=== PATIENT | female | born 1970 | race Caucasian/White ===

== ENCOUNTER → 2019-06-29 08:07 | Outpatient (CLI) | payer BC, SELFPAY ==
[2019-06-29 12:44] LABS: Hemoglobin A1c 4.9 % (4.2-6.3)
[2019-06-29 13:00] LABS: Free T3 2.2 pg/mL (2.18-3.98); T4 Free Direct 1.07 ng/dL (0.76-1.46); Thyroid Stim Hormone (TSH) 2.37 uIU/mL (0.358-3.74)
== END ==
PROVIDERS: Family Provider Family Medicine; PCP Family Medicine; Visit Provider Family Medicine
DX: E03.9 Hypothyroidism, unspecified (principal); Z83.3 Family history of diabetes mellitus
CPT/HCPCS: 36415; 83036; 84439; 84443; 84481

== ENCOUNTER 2021-01-19 10:36 | Outpatient (RCR) | payer BC, SELFPAY ==
[2015-11-19 06:51] VITALS: BMI 31.2
== END 2021-03-14 23:59 ==
LOC: IMMUN 10:36
PROVIDERS: PCP Family Medicine; Referring Provider Family Medicine; Visit Provider Family Medicine
DX: Z23 Encounter for immunization (principal)
CPT/HCPCS: 0001A; 0002A; 91300

== ENCOUNTER 2023-12-12 06:50 | Day surgery (SDC) | payer BC, SELFPAY ==
--- OUTSIDE RECORDS SUMMARY | 2023-12-12 06:55 | XMS RPT_ITS | CCD ---
Author Name Unknown Address [address] [place] [address] Organization [facility] Care Team Providers Care Collection Officer Name Role Phone Mariaelena Sosa Primary Care Provider [phone] MARIAELENA SOSA Primary Care Unavailable ROCCO PEPE Attending Unavailable MARIAELENA SOSA Primary Care Unavailable Allergies Allergy Classification Reported Allergen(s) Allergy Type Date of Onset Reaction(s) Facility (8 sources) ENVIRONMENTAL [Other] Propensity to adverse reactions 8 [facility] Work Phone: (1 source) Seasonal allergy; Translations: [SEASONAL ALLERGIES] Propensity to adverse reactions (disorder) 4 [facility] Repository (1 source) OTHER; Translations: [OTHER] Propensity to adverse reactions (disorder) 8 [facility] Repository Medications Current Medications Medication Drug Class(es) Dates Sig (Normalized) Sig (Original) amoxicillin 500 mg oral capsule (2 sources) Penicillin-class Antibacterial Start: 12-19-2022 End: 12-29-2022 take 1 capsule by mouth twice daily amoxicillin (AMOXIL) 500 mg capsule Take 1 capsule by mouth twice daily for 10 days. 20 capsule 0 12/19/2022 12/29/2022 Active Completed/Discontinued Medications Medication Drug Class(es) Dates Sig (Normalized) Sig (Original) clobetasol propionate 0.0005 mg/mg topical ointment (4 sources) Corticosteroid Start: 04-03-2022 clobetasol (TEMOVATE) 0.05 % ointment Apply thin layer to affected area BID x 4wks, then daily for 4 wks, then every other day for 4 weeks then PRN for symptoms 60 g 3 04/03/2022 Active Problems Active Problems Problem Classification Problem Date Documented Date Episodic/Chronic Administrative/social admission (1 source) Worried well; Translations: [Person with feared health complaint in whom no diagnosis is made] Episodic Immunizations and screening for infectious disease (1 source) Encounter for screening for human papillomavirus (HPV); Translations: [Screening for human papillomavirus (HPV)] Onset: 10-18-2023 Episodic Menopausal disorders (1 source) Atrophy of vagina; 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 Other female genital disorders (1 source) Burning sensation of vulva; Translations: [Other specified conditions associated with female genital organs and menstrual cycle] Episodic Other inflammatory condition of skin (2 sources) Pruritus of vulva; Translations: [Pruritus vulvae] Episodic Other inflammatory condition of skin (1 source) Lichenification of skin; Translations: [Lichen simplex chronicus] Episodic Other nutritional; endocrine; and metabolic disorders (1 source) Obesity; Translations: [Other obesity due to excess calories] Chronic Other screening for suspected conditions (not mental disorders or infectious disease) (3 sources) Patient encounter status; Translations: [Encounter for screening mammogram for malignant neoplasm of breast] Onset: 10-18-2023 Episodic Other upper respiratory infections (5 sources) Sore throat symptom; Translations: [Acute pharyngitis, unspecified] Episodic Otitis media and related conditions (1 source) Dysfunction of bilateral eustachian tubes; Translations: [Other specified disorders of Eustachian tube, bilateral] Episodic Unclassified (1 source) Dense breast tissue; Translations: [Dense breast tissue] Onset: 10-18-2023 Past or Other Problems Problem Classification Problem Date Documented Da te Episodic/Chronic Inflammatory diseases of female pelvic organs (9 sources) Vulvovaginitis; Translations: [Acute vaginitis] Onset: 06-05-2013 06-05-2013 Episodic Results Test Name Value Interpretation Reference Range Facil ity Vital Signs Date Time Vital Sign Value Performing Clinician Rasheed jones 12-19-2022 16:38-0400 Body temperature 99 [degF] Melvin Gardner APRN.CNP Work Phone: [facility] 12-19-2022 16:38-0400 Body weight 104.33 kg Melvin Gardner APRN.CNP Work Phone: [facility] 12-19-2022 16:38-0400 Diastolic blood pressure 72 mm[Hg] Melvin Callow BROKE BEATER MACHINE OPERATOR.AZURE DEVELOPER Work Phone: [facility] 12-19-2022 16:38-0400 Heart rate 90 /min Melvin Callow BROKE BEATER MACHINE OPERATOR.AZURE DEVELOPER Work Phone: [facility] 12-19-2022 16:38-0400 Respiratory rate 16 /min Melvin Callow BROKE BEATER MACHINE OPERATOR.AZURE DEVELOPER Work Phone: [facility] 12-19-2022 16:38-0400 SaO2% (BldA) [Mass fraction] 99 % Melvin Callow BROKE BEATER MACHINE OPERATOR.AZURE DEVELOPER Work Phone: [facility] 12-19-2022 16:38-0400 Systolic blood pressure 122 mm[Hg] Melvin Callow BROKE BEATER MACHINE OPERATOR.AZURE DEVELOPER Work Phone: [facility] 06-25-2022 13:38-0400 Body weight 100.61 kg Rocco Pepe BROKE BEATER MACHINE OPERATOR.CNM Work Phone: [facility] 06-25-2022 13:38-0400 Diastolic blood pressure 70 mm[Hg] Rocco Eppe BROKE BEATER MACHINE OPERATOR.CNM Work Phone: [facility] 06-25-2022 13:38-0400 Systolic blood pressure 120 mm[Hg] Rocco Pepe BROKE BEATER MACHINE OPERATOR.CNM Work Phone: [facility] 04-03-2022 11:46-0400 Body weight 100.25 kg Rocco Pepe BROKE BEATER MACHINE OPERATOR.CNM Work Phone: [facility] 04-03-2022 11:46-0400 Diastolic blood pressure 70 mm[Hg] Rocco Pepe BROKE BEATER MACHINE OPERATOR.CNM Work Phone: [facility] 04-03-2022 11:46-0400 Systolic blood pressure 110 mm[Hg] Rocco Pepe BROKE BEATER MACHINE OPERATOR.CNM Work Phone: [facility] 03-27-2022 10:48-0400 Body height 166.4 cm Rocco Pepe BROKE BEATER MACHINE OPERATOR.CNM Work Phone: [facility] 03-27-2022 10:48-0400 Body weight 98.88 kg Rocco Pepe BROKE BEATER MACHINE OPERATOR.CNM Work Phone: [facility] 03-27-2022 10:48-0400 Diastolic blood pressure 68 mm[Hg] Rocco Pepe BROKE BEATER MACHINE OPERATOR.CNM Work Phone: [facility] 03-27-2022 10:48-0400 Systolic blood pressure 118 mm[Hg] Rocco Pepe BROKE BEATER MACHINE OPERATOR.CNM Work Phone: [facility] 01-25-2022 08:44-0400 Body temperature 97.81 [degF] Mick Alex BROKE BEATER MACHINE OPERATOR.AZURE DEVELOPER Work Phone: [facility] 01-25-2022 08:44-0400 Body weight 100.88 kg Mick Johnson BROKE BEATER MACHINE OPERATOR.AZURE DEVELOPER Work Phone: [facility] 01-25-2022 08:44-0400 Diastolic blood pressure 70 mm[Hg] Mick Alex BROKE BEATER MACHINE OPERATOR.AZURE DEVELOPER Work Phone: [facility] 01-25-2022 08:44-0400 Heart rate 82 /min Mick Alex BROKE BEATER MACHINE OPERATOR.AZURE DEVELOPER Work Phone: [facility] 01-25-2022 08:44-0400 Respiratory rate 16 /min Mick Alex BROKE BEATER MACHINE OPERATOR.AZURE DEVELOPER Work Phone: [facility] 01-25-2022 08:44-0400 SaO2% (BldA) [Mass fraction] 98 % Mick Alex BROKE BEATER MACHINE OPERATOR.AZURE DEVELOPER Work Phone: [facility] 01-25-2022 08:44-0400 Systolic blood pressure 118 mm[Hg] Mick Alex BROKE BEATER MACHINE OPERATOR.AZURE DEVELOPER Work Phone: [facility] 12-30-2021 11:31-0400 Body temperature 97.39 [degF] Mick Alex BROKE BEATER MACHINE OPERATOR.AZURE DEVELOPER Work Phone: [facility] 12-30-2021 11:31-0400 Body weight 99.97 kg Imck Alex BROKE BEATER MACHINE OPERATOR.AZURE DEVELOPER Work Phone: [facility] 12-30-2021 11:31-0400 Diastolic blood pressure 70 mm[Hg] Mick Johnson APRN.KOURTNEY Work Phone: [facility] 12-30-2021 11:31-0400 Heart rate 88 /min iMck Johnson APRN.KOURTNEY Work Phone: [facility] 12-30-2021 11:31-0400 Respiratory rate 18 /min Mick Johnson APRN.AZURE DEVELOPER Work Phone: [facility] 12-30-2021 11:31-0400 SaO2% (BldA) [Mass fraction] 98 % Mick Johnson APRN.CNP Work Phone: [facility] 12-30-2021 11:31-0400 Systolic blood pressure 110 mm[Hg] Mick Johnson APRN.KOURTNEY Work Phone: [facility] Encounters Encounter Date Encounter Type Care Provider Facility Start: 10-18-2023 End: 10-19-2023 ambulatory MARIAELENA SOSA Facility:[facility] Start: 10-18-2023 Encounter for gynecological examination (general) (routine) with abnormal findings ROCCOCHANO PEPE [facility] Start: 12-19-2022 End: 12-19-2022 ambulatory MARIAELENA Mallorie SOSA Facility:[facility] Start: 12-19-2022 End: 12-19-2022 Patient encounter procedure Melvin Gardner APRN.CNP Work Phone: [facility] Procedures Date Procedure Procedure Detail Performing Clinician Start: 12-19-2022 STREP A MOLECULAR (POC) Josephine Nunez PA-C Work Phone: Start: 02-12-2022 End: 02-12-2022 Screening mammography bi 2-view breast inc cad [facility] Provider Start: 01-25-2022 STREP A MOLECULAR (POC) [facility] Provider Start: 12-30-2021 STREP A MOLECULAR (POC) [facility] Provider Start: 12-15-2019 Mammography Mick nichols APRN.CNP Work Phone: Plan of Treatment Date Care Activity Detail Author Start: 12-14-2024 HPV TESTING HPV TESTING [facility] Start: 12-14-2024 PAP TESTING PAP TESTING [facility] Start: 07-16-2023 Urine microalbumin profile DTAP,TDAP,TD (2 - Td or Tdap) [facility] Start: 02-12-2023 Mammography MAMMOGRAM [facility] Start: 10-07-2022 DEPRESSION ASSESSMENT DEPRESSION ASSESSMENT [facility] Start: 06-07-2022 Influenza vaccination [facility] Start: 2022 SHINGRIX VACCINE (1 of 2) SHINGRIX VACCINE (1 of 2) [facility] Start: 07-12-2021 COVID-19 VACCINE (3 - Booster for Pfizer series) COVID-19 VACCINE (3 - Booster for Pfizer series) [facility] Start: 06-07-2021 Influenza vaccination INFLUENZA (#1) [facility] Start: 04-06-2021 COVID-19 VACCINE (3 - Booster for Pfizer series) COVID-19 VACCINE (3 - Booster for Pfizer series) [facility] Start: 12-14-2020 Mammography MAMMOGRAM [facility] Start: 10-04-2019 LIPID SCREEN LIPID SCREEN [facility] Start: 2017 COLOGUARD (FIT-DNA) COLOGUARD (FIT-DNA) [facility] Start: 2017 Colonoscopy COLONOSCOPY [facility] Start: 2017 COLORECTAL CANCER SCREENING COLORECTAL CANCER SCREENING [facility] Start: [address] COLONOGRAPHY [facility] Start: 2017 DIABETES SCREEN DIABETES SCREEN [facility] Start: 2017 FECAL OCCULT BLOOD FECAL OCCULT BLOOD [facility] Start: 2017 SIGMOIDOSCOPY SIGMOIDOSCOPY [facility] Start: 1990 HEPATITIS C SCREENING HEPATITIS C SCREENING [facility] Start: 1990 HIV SCREENING HIV SCREENING [facility] Start: 1984 Adult depression screening assessment DEPRESSION SCREENING [facility] Start: 1972 HEPATITIS B (1 of 3 - 3-dose series) HEPATITIS B (1 of 3 - 3-dose series) [facility] ALERE STREP A TEST (AG) ALERE ST REP A TEST (AG) Lab Routine Sore throat Ordered: 12/30/2021 [facility] Work Phone: Immunizations Immunization Date Immunization Notes Care Provider Fa cility 08-19-2020 influenza, injectabl e, quadrivalent, contains preservative Mick King ANALY.KOURTNEY Work Phone: [facility] Work Phone: 07-16-2013 tetanus toxoid, redu bassam diphtheria toxoid, and acellular pertussis vaccine, adsorbed Mick King ANALY.AZURE DEVELOPER Work Phone: [facility] Work Phone: Payers Date Payer Category Payer Unknown [employer] PPO OOS [id number] 2010-Present [phone] [address] [place] [address] PPO [id number] 2010 Unknown [employer] PPO OOS [id number] 2010-Present [phone] [address] [place] [id number] PPO [id number] 2010 Unknown [id number] Social History Date Type Detail Facility Start: 06-25-2022 Tobacco smoking stat [facility] Never smoked tobacco [facility] Start: 12-30-2021 End: 12-19-2022 Alcohol intake Current drinker of alcohol (finding) [facility] Start: 12-15-2019 History SDOH Alcohol Comment Occasionally [facility] Start: 1970 Sex Assigned At Not on file [facility] Start: 12-20-2021 End: 03-27-2022 Exposure to SARS-CoV-2 (event) Not sure [facility] Start: 06-25-2022 Tobacco use and exposure Smokeless tobacco non-user [facility] Clinical Notes 08-04-2012 to 10-18-2023 Melvin Gardner APRN.AZURE DEVELOPER - 12/19/2022 8:15 PM EDTPatient Nasim Pepe APRN.CNM - 06/25/2022 1:35 PM EDTTelephone Encounter - Blanche Albarado RN - 04/23/2022 3:12 PM EDT Note Date & Type Note Facility 10-18-2023 Note HNO ID: [id number] Author: ROCCO PEPE APRN.CNM Service: ? Author Type: Damper Worker Type: Progress Notes Filed: 10/22/2023 15:22 Note Text: Melvin is a 53 year old who presents for an annual gynecologic exam with complaints of vaginal pain, itching, discharge and menses irregularity. Menses: Every 30 days however sometimes is spotting the first day period is due, then next day menses begins. This is new for pt Last Pap: 12/22/2019 normal HPV: 12/19/2019 negative History of abnormal pap: No Last mammogram: 2021 normal History of abnormal mammogram: No Sexually active: Yes, uses condoms Pain with intercourse: Yes. Avoids intercourse when is experiencing vaginal discomfort Exercise:7 times a week for 40 minutes. Type: walking Diet: regular/ lower carb OB History T2 L2 SAB2 IAB0 Ectopic0 Multiple0 Live Births2 Comment: Adopted twins from [place] PAST MEDICAL HISTORY Diagnosis Date Miscarriage 2 Miscarriages PAST SURGICAL HISTORY Procedure Laterality Date PAST SURGICAL HISTORY OF WISDOM TEETH TONSILLECTOMY PRIMARY/SECONDARY FAMILY HISTORY Problem Relation Age of Onset Psychiatry Mother ADD/?Bipolar Heart Mother Diabetes Mother Pre Diabetic Diabetes Father Heart Father other (CORONARY ARTRY DISEASE) Father WITH STENT PLACEMENT other (Parkinson's) Father No Known Problems Sister Hypertension Brother Psychiatry Brother ADD Alzheimer's Disease Maternal Grandmother Osteoporosis Maternal Grandmother No Known Problems Daughter No Known Problems Daughter other (Other) Son Adopted other (Other) Son Adopted Cancer Maternal Uncle STOMACH CANCER Diabetes Maternal Uncle SOCIAL HISTORY Social History Tobacco Use Smoking status: Never Smokeless tobacco: Never Vaping Use Vaping Use: Never used Substance Use Topics Alcohol use: Yes Comment: Occasionally Drug use: No REVIEW OF SYSTEMS Abdomen: No abdominal pain, nausea, vomiting, diarrhea, or constipation. No bloating, early satiety, indigestion, or increased flatulence. Bladder: No dysuria, gross hematuria, urinary frequency, urinary urgency. Has some stress incontinence Breast: No breast lumps, nipple d/c, overlying skin changes, redness or skin retraction and Breast lump(s) noted Allergies and current medication updated:Yes EXAM: BP 110/66 Wt 227 lb (103.0kg) LMP 06/25/2022 GENERAL: pleasant, female in no apparent distress HEENT: Normocephalic, atraumatic, mucus membranes moist, and no lesions NECK: Supple, full range of motion, no adenopathy, and thyroid normal DERMATOLOGY: Normal, without lesions, non-icteric, non-hirsute, and warm BREAST: soft, non-tender, symmetric, no dominant mass, normal nipple-areolar complex, no lymphadenopathy, and no nipple discharge CHEST: Clear to auscultation, Normal inspiratory effort, Regular rate and rhythm, and No murmurs, clicks, rubs or gallops ABDOMEN: soft, non-tender, and no masses PELVIC: external genitalia normal, normal Bartholin's glands, urethra, Westgate's glands, no vulvar lesions, no cervical lesions, good vaginal support, physiologic discharge present white/yellow, thick, normal appearing perineal body and perianal region, well estrogenized BIMANUAL: uterus normal size, shape and consistency, no adnexal masses, non-tender, and no cervical motion tenderness RECTOVAGINAL: deferred. NEURO: alert and oriented x3,exam grossly non-focal EXTREMITIES: normal ASSESSMENT: 1. Encounter for gynecological examination with abnormal finding - ICD9: V72.31, ICD10: Z01.411 (primary diagnosis) - Completed pelvic and breast exam - Encouraged monthly BSE - Follow up for annual exam in one year. - PAP TEST - BACTERIAL VAGINOSIS NAAT - ELEANOR/TRICHOMONAS NAAT 2. Encounter for screening mammogram for breast cancer - ICD9: V76.12, ICD10: Z12.31 - Completed pelvic and breast exam - Encouraged monthly BSE - Follow up for annual exam in one year. - RUSSEL SCREENING W YOMAIRA 3. Dense breast tissue - ICD9: 793.82, ICD10: R92.30 - RUSSEL SCREENING W YOMAIRA 4. Screening for cervical cancer - ICD9: V76.2, ICD10: Z12.4 Is scheduling with her PCP 5. Screening for human papillomavirus (HPV) - ICD9: V73.81, ICD10: Z11.51 - PAP TEST Plan: 1) Health maintenance: Pap done with HPV. Nutrition, exercise and routine health maintenance exams reviewed. Planning to have colonoscopy before leaving for [facility] with family this summer 2) Education regarding perimenopausal symptoms reviewed with patient. 3) Discussed continued use of condoms until menopause. 4) Clobetasol ointment reordered for vaginal comfort, tapering dose, then prn. 4) Return to office for annual visit in one year and as needed. Plans to travel to [facility] for health care needs while in [facility], as needed. Onel Agrawal [facility] TEACHING AIR TRAFFIC SYSTEMS TECHNICIAN NOTE OF PERSONAL INVOLVEMENT IN CARE: I have interviewed the patient and updated the midwifery s (more content not included)... [facility] 12-19-2022 Note HNO ID: [id number] Author: Melvin Gardner APRN.AZURE DEVELOPER Service: ? Author Type: Nurse Practitioner Type: Progress Notes Filed: 12/19/2022 8:18 PM Note Text: Subjective HPI Melvin Presents today with two day hx of sorethroat and several family members with strep at home. She is feeling feverish and just not herself today. She is eating and drinking well, no rash or other symptoms at this time. PAST MEDICAL HISTORY Diagnosis Date Miscarriage 2 Miscarriages PAST SURGICAL HISTORY Procedure Laterality Date PAST SURGICAL HISTORY OF WISDOM TEETH TONSILLECTOMY PRIMARY/SECONDARY ALLERGIES Environmental [Other] MEDICATIONS Estradiol (VAGIFEM) 10 mcg vaginal tablet Use 1 tablet vaginally once daily. For 2 weeks then twice a week clobetasol (TEMOVATE) 0.05 % ointment Apply thin layer to affected area BID x 4wks, then daily for 4 wks, then every other day for 4 weeks then PRN for symptoms Lactobacillus acidophilus (PROBIOTIC ORAL) Take by mouth. MULTIVITAMIN ORAL Take by mouth. amoxicillin (AMOXIL) 500 mg capsule Take 1 capsule by mouth twice daily for 10 days. fluticasone (FLONASE) 50 mcg/actuation nasal spray Use 2 Sprays in each nostril once daily. Rinse mouth after use. (Patient not taking: Reported on 06/25/2022) FAMILY HISTORY Problem Relation Age of Onset Psychiatry Mother ADD/?Bipolar Heart Mother Diabetes Mother Pre Diabetic Diabetes Father Heart Father other (CORONARY ARTRY DISEASE) Father WITH STENT PLACEMENT other (Parkinson's) Father No Known Problems Sister Hypertension Brother Psychiatry Brother ADD Alzheimer's Disease Maternal Grandmother Osteoporosis Maternal Grandmother No Known Problems Daughter No Known Problems Daughter other (Other) Son Adopted other (Other) Son Adopted Cancer Maternal Uncle STOMACH CANCER Diabetes Maternal Uncle Social History Tobacco Use Smoking status: Never Smokeless tobacco: Never Vaping Use Vaping Use: Never used Substance Use Topics Alcohol use: Yes Comment: Occasionally Drug use: No Review of Systems Constitutional: Positive for fever. HENT: Positive for sore throat. All other systems reviewed and are negative. Objective Physical Exam Vitals and nursing note reviewed. Constitutional: Appearance: Normal appearance. HENT: Head: Normocephalic and atraumatic. Right Ear: Tympanic membrane normal. Left Ear: Tympanic membrane normal. Nose: Nose normal. No congestion. Mouth/Throat: Mouth: Mucous membranes are dry. Pharynx: Posterior oropharyngeal erythema present. Eyes: Extraocular Movements: Extraocular movements intact. Pupils: Pupils are equal, round, and reactive to light. Cardiovascular: Rate and Rhythm: Normal rate and regular rhythm. Pulses: Normal pulses. Pulmonary: Effort: Pulmonary effort is normal. Breath sounds: Normal breath sounds. Abdominal: General: Abdomen is flat. Palpations: Abdomen is soft. Musculoskeletal: General: Normal range of motion. Cervical back: Normal range of motion. Neurological: Mental Status: She is alert. ASSESSMENT/PLAN: 1. Sore throat - ICD9: 462, ICD10: J02.9 (primary diagnosis) - Rapid Strep positive in the office today - STREP A MOLECULAR (POC) 2. Sorethroat - ICD9: 462, ICD10: J02.9 - Discussed supportive care treatment with fluids, rest and analgesia. Follow up in any concerns radha Gardner APRN.[facility] 12-19-2022 History of Presen t illness Narrative Subjective HPI Melvin Presents today with two day hx of sorethroat and several family members with strep at home. She is feeling feverish and just not herself today. She is eating and drinking well, no rash or other symptoms at this time. PAST MEDICAL HISTORY Diagnosis Date Miscarriage 2 Miscarriages PAST SURGICAL HISTORY Procedure Laterality Date PAST SURGICAL HISTORY OF WISDOM TEETH TONSILLECTOMY PRIMARY/SECONDARY <AGE 14 ALLERGIES Environmental [Other] MEDICATIONS Estradiol (VAGIFEM) 10 mcg vaginal tablet Use 1 tablet vaginally once daily. For 2 weeks then twice a week clobetasol (TEMOVATE) 0.05 % ointment Apply thin layer to affected area BID x 4wks, then daily for 4 wks, then every other day for 4 weeks then PRN for symptoms Lactobacillus acidophilus (PROBIOTIC ORAL) Take by mouth. MULTIVITAMIN ORAL Take by mouth. amoxicillin (AMOXIL) 500 mg capsule Take 1 capsule by mouth twice daily for 10 days. fluticasone (FLONASE) 50 mcg/actuation nasal spray Use 2 Sprays in each nostril once daily. Rinse mouth after use. (Patient not taking: Reported on 06/25/2022) FAMILY HISTORY Problem Relation Age of Onset Psychiatry Mother ADD/?Bipolar Heart Mother Diabetes Mother Pre Diabetic Diabetes Father Heart Father other (CORONARY ARTRY DISEASE) Father WITH STENT PLACEMENT other (Parkinson's) Father No Known Problems Sister Hypertension Brother Psychiatry Brother ADD Alzheimer's Disease Maternal Grandmother Osteoporosis Maternal Grandmother No Known Problems Daughter No Known Problems Daughter other (Other) Son Adopted other (Other) Son Adopted Cancer Maternal Uncle STOMACH CANCER Diabetes Maternal Uncle Social History Tobacco Use Smoking status: Never Smokeless tobacco: Never Vaping Use Vaping Use: Never used Substance Use Topics Alcohol use: Yes Comment: Occasionally Drug use: No Review of Systems Constitutional: Positive for fever. HENT: Positive for sore throat. All other systems reviewed and are negative. Objective Physical Exam Vitals and nursing note reviewed. Constitutional: Appearance: Normal appearance. HENT: Head: Normocephalic and atraumatic. Right Ear: Tympanic membrane normal. Left Ear: Tympanic membrane normal. Nose: Nose normal. No congestion. Mouth/Throat: Mouth: Mucous membranes are dry. Pharynx: Posterior oropharyngeal erythema present. Eyes: Extraocular Movements: Extraocular movements intact. Pupils: Pupils are equal, round, and reactive to light. Cardiovascular: Rate and Rhythm: Normal rate and regular rhythm. Pulses: Normal pulses. Pulmonary: Effort: Pulmonary effort is normal. Breath sounds: Normal breath sounds. Abdominal: General: Abdomen is flat. Palpations: Abdomen is soft. Musculoskeletal: General: Normal range of motion. Cervical back: Normal range of motion. Neurological: Mental Status: She is alert. ASSESSMENT/PLAN: 1. Sore throat - ICD9: 462, ICD10: J02.9 (primary diagnosis) - Rapid Strep positive in the office today - STREP A MOLECULAR (POC) 2. Sorethroat - ICD9: 462, ICD10: J02.9 - Discussed supportive care treatment with fluids, rest and analgesia. Follow up in any concerns radha Gardner APRN.CNP documented in this encounter [facility] 06-25-2022 Instructions Rocco Pepe APRN.CNM - 06/25/2022 2:02 PM EDT 1)Start vaginal tablet-Insert vaginal tablet into the vaginal opening nightly for two weeks and then, twice weekly. 2) May decrease steroid ointment to vulva to as needed. documented in this encounter [facility] 06-25-2022 History of Presen t illness Narrative Hand Candle Molder offered: Patient declines. Melvin Lees is a 52 year old female who presents for problem visit follow up. HPI: Clobetasol ointment has helped with discomfort and itching. Will still come every couple of days.Will feel raw and exposed . Instant relief. Will also get burning at times. After drinking orange juice had burning. So has noticed a correlation between with orange juice and pinapple Menses still every month, LMP 06/25/22. Using condoms for control Denies continued itch scratch cycle and tries to avoid touching. Discomfort during intercourse is better and nothing inside. Previous just with touching outside. . Denies any vaginal discharge or other concerns. OB History T2 L2 SAB2 IAB0 Ectopic0 Multiple0 Live Births2 Comment: Adopted twins from [place] [employer] Guest [employer] History LMP: 03/12/2022, Having periods Age at Menarche: Age at First : Age at Menopause: [employer] History Comments: Sexual Activity: Yes; Male; Nuvaring Contraception: Inserts PAST MEDICAL HISTORY Diagnosis Date Miscarriage 2 Miscarriages PAST SURGICAL HISTORY Procedure Laterality Date PAST SURGICAL HISTORY OF WISDOM TEETH TONSILLECTOMY PRIMARY/SECONDARY <AGE 12 FAMILY HISTORY Problem Relation Age of Onset Psychiatry Mother ADD/?Bipolar Heart Mother Diabetes Mother Pre Diabetic Diabetes Father Heart Father other (CORONARY ARTRY DISEASE) Father WITH STENT PLACEMENT other (Parkinson's) Father No Known Problems Sister Hypertension Brother Psychiatry Brother ADD Alzheimer's Disease Maternal Grandmother Osteoporosis Maternal Grandmother No Known Problems Daughter No Known Problems Daughter other (Other) Son Adopted other (Other) Son Adopted Cancer Maternal Uncle STOMACH CANCER Diabetes Maternal Uncle Social History Tobacco Use Smoking status: Never Smokeless tobacco: Never Vaping Use Vaping Use: Never used Substance Use Topics Alcohol use: Yes Comment: Occasionally Drug use: No Current Outpatient Medications Medication Sig clobetasol (TEMOVATE) 0.05 % ointment Apply thin layer to affected area BID x 4wks, then daily for 4 wks, then every other day for 4 weeks then PRN for symptoms fluticasone (FLONASE) 50 mcg/actuation nasal spray Use 2 Sprays in each nostril once daily. Rinse mouth after use. Lactobacillus acidophilus (PROBIOTIC ORAL) Take by mouth. MULTIVITAMIN ORAL Take by mouth. No current facility-administered medications for this visit. Allergies As of Date: 06/25/2022 Allergen Noted Reaction ENVIRONMENTAL [OTHER] 11/28/2007 Fully Assessed 04/03/2022 REVIEW OF SYSTEMS Abdomen: No bloating, early satiety, indigestion, or increased flatulence. No abdominal pain, nausea, vomiting, diarrhea, or constipation. Bladder: No dysuria, gross hematuria, urinary frequency, urinary urgency, or incontinence. Breast: No breast lumps, nipple d/c, overlying skin changes, redness or skin retraction. Expanded ROS: N/A Allergies and current medication updated:Yes EXAM: LMP 03/12/2022 BP 120/70 Wt 221 lb 12.8 oz (100.6 kg) LMP 06/25/2022 BMI 36.35 kg/m GENERAL: pleasant, female in no apparent distress HEENT: Normocephalic and atraumatic NECK: Supple and full range of motio DERMATOLOGY: Normal and without lesions CHEST: Normal inspiratory effort ABDOMEN: soft, non-tender, and no masses PELVIC: deferred BIMANUAL: deferred NEURO: alert and oriented x3,exam grossly non-focal EXTREMITIES: normal ASSESSMENT AND PLAN: 1. Vaginal atrophy - ICD9: 627.3, ICD10: N95.2 (primary diagnosis) - ESTRADIOL 10 MCG VAGINAL TABLET - Reviewed option for vaginal estrogen and possible vaginal atrophy as cause of symptoms. Declined exam today. Reviewed risks, benefits, and administration. Reviewed how to take medication. Follow units pin 4-6 weeks. Declines and will send message if no improvement. 2. Vulvar burning - ICD9: 625.9, ICD10: N94.89 Rocco Pepe APRN.CNM documented in this encounter [facility] 04-23-2022 Miscellaneous Notes Pt. notified. Voices understanding. Follow up appt. made with Rocco Pepe. Blanche Albarado RN Message left on identified voicemail for pt to return call. Please review below results and schedule appt/ close encounter when pt calls back. Blanche Albarado RN Saul Crawford, I just wanted to let you know your biopsy shows chronic inflammation, so it is not lichen sclerosis. The treatment is still the same though and recommend to continue the steroid ointment. I would like to see you in about 1-2 months if you don't mind to see if improvement or if we need to do something else. Please schedule an appointment with me at that time. Please let me know if you have any other questions or concerns. Take care, Rocco Pepe APRN.CNM See Implisit message re: vulvar bx. Message left for pt to contact the office for further instructions. Naila Soto LPN ----- Message from Rocco Pepe APRN.CNM sent at 04/20/2022 1:40 PM EDT ----- Patient did not view Implisit message. Can you please call and notify of result note recommendations. Thank you, Rocco Pepe APRN.CNM documented in this encounter [facility] 04-03-2022 Instructions Elva Cota MA - 04/03/2022 11:30 AM EDT VULVAR BIOPSY PATIENT INSTRUCTIONS Many conditions may cause your systems development consultant to suggest a vulvar biopsy including vulvar itching unresponsive to therapy, ulcerated lesions, pigmented lesions, and tumors. The biopsy result will assist your systems development consultant to devise a treatment plan suitable to your condition. 1. Usually, there is a local discomfort, swelling, and skin discoloration. Using cold compresses overnight usually alleviates the discomfort considerably. Warm compresses thereafter can be used as needed. Prescribed analgesic (pain killers) are not necessary. You may use Advil, Tylenol, etc. for pain relief. 2. You may shower or take tub baths. 3. If sutures are used, they will dissolve in 7-14 days. 4. You should call the office if there is excessive bleeding, swelling, fever, chills, sweats, or difficulty walking. 5. Biopsy results will be available in 7-10 days. If you have not heard your results in 2 weeks please contact your physician. Lichen Sclerosus Lichen means white and mosslike. Sclerosus means scarred. What is lichen sclerosus? This is a common disease of the genital skin in women. The areas involved are the vulva and danya-anal area. The vulva is the skin located at the entrance to the vagina. The skin in this area is highly specialized in that it performs many unique functions and to do so contains many glands and nerve endings. The covering skin is specialized also - in some areas thick and resilient, and in others thin and more fragile. Lichen sclerosus usually occurs on the vulva but can occur anywhere on the body. It can start at any age (even in childhood) but most commonly affects women 40 to 50 years of age. In this condition, the vulvar skin usually becomes thin, white, and fragile. If there has been a lot of scratching, the skin is thick and may be scarred. The cause is unknown. Very rarely, there can be a familial occurrence. It is not infectious and is not sexually transmitted. What are the symptoms? Usually, it starts with itching or burning. Other symptoms include painful intercourse, splitting of the skin, and bleeding. With time, the vulvar skin changes and becomes progressively more thick and white, and the small lips (the labia minora) begin to shrink and eventually disappear. The clitoris may become buried in the shrinking skin folds, and these folds can close over it. Rarely, the vaginal opening gradually shrinks. If the area is very itchy, the skin may be white and very thickened. This itching may be severe enough to wake you up at night. Scratching often can cause bruising. In young children, this bruising can result in a mistaken diagnosis of sexual abuse. Scratching or any irritation worsens this condition. Can lichen sclerosus be treated? The diagnosis usually must be first confirmed with a biopsy, and then therapy can be started. Treatment usually involves a topical cream or ointment in addition to general measures. A strong topical zktursotz-fcblyzsjtg-co used to stop the inflammation that is attacking the skin cells in this area, causing the whitish discoloration, thinning, splitting, and scarring. This cortisone is often combined with an anti-yeast product-nystatin (Mycostatin) or ketoconazol (Nizoral). The ointment(s) are used for 12 to 16 weeks on a regular basis and then further treatments are individualized. Continued long-term daily treatment with this medication is not possible because it can cause thinning of the skin itself. After 12 to 16 weeks, when the area has improved, treatment is used intermittently, 1 to 3 times per week as needed, or only when needed. What else can I do? Avoid harsh and irritating soaps, detergents, and tight synthetic clothing that may rub or irritate the area. To cleanse, use a mild cleaning lotion like Cetaphil cleanser or a very mild bar cleanser such as Dove (unscented) or Basis. Try not to scratch. Avoid using panty liners. How long will therapy be needed? Lichen sclerosus can be controlled. There is no definitive cure . With the previously described form of therapy, improvement is quite rapid in most cases and some people have been so improved that no further treatment has been needed. It is too early to call those patients cured; only time will tell. Most patients require maintenance treatment, using the ointment once a week or on an intermittent basis. Regular follow-up is necessary. Can I become and deliver a baby? Lichen sclerosus does not prevent you from becoming . It does not affect any of the tissues inside you. You can continue your treatment throughout your with the supervision of you doctor. Problems are usually few with vaginal delivery, unless you have a lot of extensive scarring. Does this condition lead to cancer? Up to 5% of patients have developed skin cancer in the vulvar area associated with lichen sclerosus. Usually, they have had the condition, untreated, for years. We hope that early recognition and aggressive treatment will reduce or eliminate the risk of cancer. That is the reason close follow-up is essential. documented in this encounter [facility] 04-03-2022 History of Presen t illness Narrative Melvin Lees is a 52 year old female who presents today for a vulvar biopsy. Indication: persistent pruritis. UNIVERSAL PROTOCOL / SAFETY CHECKLIST Procedure to be Performed: vulvar biopsy Sign In: A Moment of CARE was completed. Personnel directly involved with the procedure wore the appropriate PPE (Personal Protective Equipment). Special equipment: 3 keys Patient/Surrogate Stated/Verified: PATIENT VERIFIED(optional for EMERGENT procedures): Patient name, Date of , Relevant allergies and The intended procedure Time Out Communication: Intended patient and procedure match the source documents. Consent documented and matches the intended procedure. No relevant labs, photos, and/or imaging studies were applicable for review. Correct side/site marked and visible. Medications required for procedure verified. No fire risk assessment and interventions applicable. No implant(s) inserted. Sign Out: SIGN OUT (optional for EMERGENT procedures): All specimen containers correctly labeled. All instruments, equipment, possible retained foreign bodies accounted for. Post-procedure follow-up management communicated and Plan of Care Visit completed when applicable. Rocco Pepe CNM PROCEDURE NOTE: GROSS LESIONS: No BIOPSY: Area was cleansed with betadine and anesthetized with 2mL 1% lidocaine with 1:100,000 epi. 3mm Jennifer punch used to biopsy region. HEMOSTASIS: Obtained with pressure Procedure Summary: Patient tolerated procedure well and colposcopy was adequate. ASSESSMENT: 1. Vulvar itching - ICD9: 698.1, ICD10: L29.2 - SURGICAL PATHOLOGY PLAN: Specimens labeled and sent to Pathology. Will notify patient of results in 1-2 weeks. Follow up in 1 weeks to discuss results. Post-procedure instructions reviewed and written material given to the patient. Rocco Pepe APRN.CNM documented in this encounter [facility] 03-27-2022 Instructions Rocco Pepe APRN.CNM - 03/27/2022 11:21 AM EDT Calcium and Vitamin D Supplementation (from the National Institutes of Health Office of Dietary Supplements 2011) Calcium is required by the body for blood vessel, muscle, hormone and nerve functioning. Most of the body's calcium is stored in the bones and teeth where it supports structure and function. Bone is continuously broken down and reformed. When bone breakdown exceeds formation, especially in postmenopausal women, bone loss can increase the risk of osteoporosis and fractures. In addition to low calcium intake, women who smoke, have a family history of osteoporosis, are thin, or , or who take certain medications such as cancer chemotherapy, seizure mediations and steroids are at increased risk of osteoporosis. The calcium requirements in women change with age. The National Institutes of Health (NIH) recommends: 1000mg elemental calcium for premenopausal women age 19-50 1200mg elemental calcium for postmenopausal women and all women over 50 Milk, yogurt, and cheese are rich natural sources of calcium and are the major food contributors in the [place]. For example, 8oz of milk (whole, lowfat or skim) contains about 300mg calcium, 8oz of yogurt contains 415mg. Nondairy sources include salmon and sardines and vegetables, such as [place] cabbage, kale, and broccoli. Foods fortified with calcium include many fruit juices, tofu and cereals. For more food calcium content information, visit http://ods.od.nih.gov/factsheets /calcium. Calcium supplements come in several different forms. Remember that the recommendations are for millgrams (mg) of elemental calcium which may be less than the total weight of the supplement. The amount of elemental calcium is required to be printed on the label. Calcium carbonate is the least expensive form. It must be taken on a full stomach to be properly absorbed. Some patients may experience gas or constipation. Calcium phosphate and calcium citrate may be taken either with or without food and tend to have less side effects but are generally more expensive. Because of its ability to neutralize stomach acid, calcium carbonate is found in some ccmp-gls-iupofob antacid products, such as Tums and Rolaids . Depending on its strength, each chewable pill or softchew provides 200 to 400 mg of elemental calcium. The percentage of calcium absorbed depends on the total amount of elemental calcium consumed at one time. Absorption is highest in doses <500mg. So a woman who takes 1,000mg/day of calcium from supplements should split the dose and take 500mg at two separate times during the day. Too much calcium can cause kidney stones, constipation, difficulty absorbing other nutrients and calcium buildup in blood vessels. Women under 50 should not exceed 2500mg/day (2000mg/day for women over 50) of calcium from food and supplements. Excessive alcohol and caffeine intake can inhibit absorption of calcium. Calcium can reduce the absorption of some medications if taken at the same time of day (bisphosphonates, thyroid medication, Phenytoin and other seizure medications, some antibiotics and iron supplements). Vitamin D promotes calcium absorption in the gut and maintains adequate blood levels of calcium and phosphate for normal bone growth and bone remodeling. Vitamin D also helps regulate cell growth as well as nerve, muscle and immune system function. Vitamin D is produced in the skin as a result of ultraviolet sunlight rays and must be altered in the liver and kidney to become its active form. Recommended intake according to the National Institutes of Health is 600 International Units (IU) for girls and women ages 1-70 and 800 IU for women over 70. Very few foods in nature contain vitamin D. The flesh of fatty fish (such as salmon, tuna, and mackerel) and fish liver oils are among the best sources. Small amounts of vitamin D are found in beef liver, cheese, mushrooms and egg yolks. Most people meet at least some of their vitamin D needs through exposure to sunlight. Season, time of day, length of day, cloud cover, smog, skin melanin content, and sunscreen are among the factors that affect UV radiation exposure and vitamin D synthesis. Despite the importance of the sun for vitamin D synthesis, it is prudent to limit exposure of skin to sunlight and avoid tanning beds. UV radiation is a carcinogen responsible for most of the estimated 1.5 million skin cancers that occur annually in the [place]. Lifetime cumulative UV damage to skin is also responsible for some age-associated dryness and other cosmetic changes. In supplements and fortified foods, vitamin D is available in two forms, D2 (ergocalciferol) and D3 (cholecalciferol). The two are equivalent at normal supplement doses. For women who require high supplement doses because of vitamin D deficiency, D3 may work better to raise blood levels. Some medications can prevent proper absorption of Vitamin D. These include laxatives, corticosteroids like prednisone, the seizure drugs phenobarbital and phenytoin, the weight-loss drug orlistat ( Xenical and AlliTM) and the cholesterol-lowering drug cholestyramine (Questran , LoCholest , and Prevalite ). Talk to your doctor about adjusting your recommended daily vitamin D dosage if you take these medications. You should not exceed 4000 mg of vitamin D supplementation daily unless specifically prescribed by your doctor. ACOG Screening Guidelines The following health screening schedule is recommended by the [place] [employer] (ACOG). Some of these tests may be ordered or performed by your primary care doctor. Pap test screening The pap test looks at cells on the cervix (the opening from the vagina to the uterus) to look for cancer or pre-cancerous changes. These changes are caused by the human papillomavirus (HPV). Studies estimate that half of all women will test positive for this virus within 3 years of starting sexual activity. For young women with a normal immune system, 90% of HPV infections will resolve within 2 years. There is a vaccine available against some forms of HPV. This is recommended for girls and women age 9-45. For ages 9-14, two injections are given at 0 and 6 months. For ages 15-45, three injections are given at 0,2 and 6 months. Because this vaccine does not protect against all HPV types which can cause cervical cancer, women who received the vaccine still need pap tests. Pap smear screening should be started at age 21. The pap test should be done every 3 years from age 21-29. From age 30-65, pap smears can be done every 5 years if HPV test is negative or every 3 years if HPV testing is not done. For women over the age of 65, ACOG recommends against screening women who have had adequate prior screening and are not otherwise at high risk for cervical cancer. Women who have had a hysterectomy also do not need routine pap smear screening unless the pap smear was done for a cervical cancer or moderate to severe dysplasia. Breast cancer screening Mammogram should be performed every 1-2 years starting at age 40 and every year starting at age 50. Screening may be started earlier depending on family history. Cholesterol screening Lipid panel (cholesterol test) should be checked every 5 years starting at age 45. Diabetes screening Fasting glucose (blood sugar) test should be performed every 3 years starting at age 45. Colorectal cancer screening Starting at age 45, women should have a screening colonoscopy at least every 10 years. Screening may be started earlier depending on family history. Thyroid screening Thyroid function test (TSH) should be checked every 5 years starting at age 50. Bone mineral density screening All postmenopausal women age 65 and over and postmenopausal women with risk factors for osteoporosis should have a bone mineral density test performed. Risk factors include race, family history of osteoporosis, personal history of fractures, poor nutrition, smoking, heavy alcohol use, early menopause, low calcium intake and low body weight. Certain medical conditions and long-term use of some medications may also increase risk. Body max Index (BMI) Your body mass index (BMI) is a measure of your body fat based on your weight and height. The number that is calculated will tell you if you fall into the normal, overweight or obese category. BMI Table Normal weight: BMI is between 19 and 24.9 Overweight: BMI is between 25 and 29.9 Obese: BMI is 30 and above Why is BMI important? Being overweight or obese (BMI over 25) can exacerbate or put you at risk for getting certain diseases, like the ones listed below: Arthritis Asthma Cancer Diabetes Mellitus Type 2 Heart Attack High blood pressure Hypertension Hyperlipidemia Kidney failure Other Lung diseases Sleep Apnea Stroke How can I lose weight: Choosing healthy foods in small portions and exercising regularly is a good way to start. The following are a few tips: Choose foods and snacks higher in protein and fiber. Reduce the amount of sugary drinks (like soda) and snacks (cookies, sweets, etc) Cut back on the amount of carbohydrates eaten daily (bread, pasta, rice, cakes) Drink at least 8 glasses of water per day sometimes thirst feels like hunger stay hydrated Chew your food slowly to savor the taste and allow the signal that you are full to register in your brain Exercise/Activity Exercise improves your blood flow and circulation, enhances your mood and can you to maintain or lose weight. A brisk walk for 30 mins or longer 4-5 times per week is recommended but you can also use DVD's at home such as Walk Away the Pounds, Radha exercises, Yoga and others to get some variety. When do I need a referral? If you have tried all of the above and have not lost any weight, then you should ask your provider for a referral to a mica miner blasting or medical weight pain management physician who can help you reach your goals for being at your ideal body weight. Calcium and Vitamin D Supplementation (from the National Institutes of Health Office of Dietary Supplements 2011) Calcium is required by the body for blood vessel, muscle, hormone and nerve functioning. Most of the body's calcium is stored in the bones and teeth where it supports structure and function. Bone is continuously broken down and reformed. When bone breakdown exceeds formation, especially in postmenopausal women, bone loss can increase the risk of osteoporosis and fractures. In addition to low calcium intake, women who smoke, have a family history of osteoporosis, are thin, or , or who take certain medications such as cancer chemotherapy, seizure mediations and steroids are at increased risk of osteoporosis. The calcium requirements in women change with age. The National Institutes of Health (NIH) recommends: 1000mg elemental calcium for premenopausal women age 19-50 1200mg elemental calcium for postmenopausal women and all women over 50 Milk, yogurt, and cheese are rich natural sources of calcium and are the major food contributors in the [place]. For example, 8oz of milk (whole, lowfat or skim) contains about 300mg calcium, 8oz of yogurt contains 415mg. Nondairy sources include salmon and sardines and vegetables, such as [place] cabbage, kale, and broccoli. Foods fortified with calcium include many fruit juices, tofu and cereals. For more food calcium content information, visit http://ods.od.nih.gov/factsheets /calcium. Calcium supplements come in several different forms. Remember that the recommendations are for millgrams (mg) of elemental calcium which may be less than the total weight of the supplement. The amount of elemental calcium is required to be printed on the label. Calcium carbonate is the least expensive form. It must be taken on a full stomach to be properly absorbed. Some patients may experience gas or constipation. Calcium phosphate and calcium citrate may be taken either with or without food and tend to have less side effects but are generally more expensive. Because of its ability to neutralize stomach acid, calcium carbonate is found in some ursd-nud-vfeavcb antacid products, such as Tums and Rolaids . Depending on its strength, each chewable pill or softchew provides 200 to 400 mg of elemental calcium. The percentage of calcium absorbed depends on the total amount of elemental calcium consumed at one time. Absorption is highest in doses <500mg. So a woman who takes 1,000mg/day of calcium from supplements should split the dose and take 500mg at two separate times during the day. Too much calcium can cause kidney stones, constipation, difficulty absorbing other nutrients and calcium buildup in blood vessels. Women under 50 should not exceed 2500mg/day (2000mg/day for women over 50) of calcium from food and supplements. Excessive alcohol and caffeine intake can inhibit absorption of calcium. Calcium can reduce the absorption of some medications if taken at the same time of day (bisphosphonates, thyroid medication, Phenytoin and other seizure medications, some antibiotics and iron supplements). Vitamin D promotes calcium absorption in the gut and maintains adequate blood levels of calcium and phosphate for normal bone growth and bone remodeling. Vitamin D also helps regulate cell growth as well as nerve, muscle and immune system function. Vitamin D is produced in the skin as a result of ultraviolet sunlight rays and must be altered in the liver and kidney to become its active form. Recommended intake according to the National Institutes of Health is 600 International Units (IU) for girls and women ages 1-70 and 800 IU for women over 70. Very few foods in nature contain vitamin D. The flesh of fatty fish (such as salmon, tuna, and mackerel) and fish liver oils are among the best sources. Small amounts of vitamin D are found in beef liver, cheese, mushrooms and egg yolks. Most people meet at least some of their vitamin D needs through exposure to sunlight. Season, time of day, length of day, cloud cover, smog, skin melanin content, and sunscreen are among the factors that affect UV radiation exposure and vitamin D synthesis. Despite the importance of the sun for vitamin D synthesis, it is prudent to limit exposure of skin to sunlight and avoid tanning beds. UV radiation is a carcinogen responsible for most of the estimated 1.5 million skin cancers that occur annually in the [place]. Lifetime cumulative UV damage to skin is also responsible for some age-associated dryness and other cosmetic changes. In supplements and fortified foods, vitamin D is available in two forms, D2 (ergocalciferol) and D3 (cholecalciferol). The two are equivalent at normal supplement doses. For women who require high supplement doses because of vitamin D deficiency, D3 may work better to raise blood levels. Some medications can prevent proper absorption of Vitamin D. These include laxatives, corticosteroids like prednisone, the seizure drugs phenobarbital and phenytoin, the weight-loss drug orlistat ( Xenical and AlliTM) and the cholesterol-lowering drug cholestyramine (Questran , LoCholest , and Prevalite ). Talk to your doctor about adjusting your recommended daily vitamin D dosage if you take these medications. You should not exceed 4000 mg of vitamin D supplementation daily unless specifically prescribed by your doctor. Hormone Therapy* (HT): Understanding Benefits and Risks (*Sometimes also called hormone replacement therapy, HRT) What are estrogen and progesterone? Estrogen and progesterone are hormones that are produced by a woman's ovaries. Why does the body need estrogen? Estrogen thickens the lining of the uterus, preparing it for the possible implantation of a fertilized egg. Estrogen also influences how the body uses calcium, an important mineral in the building of bones. In addition, estrogen helps maintain healthy levels of cholesterol in the blood. Estrogen is necessary in keeping the vagina healthy. As menopause nears, the ovaries reduce most of their production of these hormones. Lowered or fluctuating estrogen levels may cause menopause symptoms such as hot flashes, and medical conditions such as osteoporosis. What is hormone therapy (HT)? Hormone therapy (HT) is a treatment that is used to supplement the body with either estrogen alone or estrogen and progesterone in combination. When the ovaries no longer produce adequate amounts of these hormones (as in menopause), HT can be given to supplement the body with adequate levels of estrogen and progesterone. HT helps to replenish the estrogen, relieving some of the symptoms of menopause and helping to prevent osteoporosis. Why is progesterone taken? Progesterone is used along with estrogen in women who still have their uterus. In these women, estrogen-- if taken without progesterone--increases a woman's risk for cancer of the endometrium (the lining of the uterus). During a woman's reproductive years, cells from the endometrium are shed during menstruation. When the endometrium is no longer shed, estrogen can cause an overgrowth of cells in the uterus, a condition that can lead to cancer. Progesterone reduces the risk of endometrial (uterine) cancer by making the endometrium thin. Women who take progesterone may have monthly bleeding, or no bleeding at all, depending on how the hormone therapy is taken. Monthly bleeding can be lessened and, in some cases, eliminated by taking progesterone and estrogen together continuously. Women who have had a hysterectomy (removal of the uterus through surgery) usually do not need to take progesterone. This is an important point, because estrogen taken alone has fewer long-term risks than HT that uses a combination of estrogen and progesterone. What are the types of HT? There are two main types of HT: Estrogen Therapy (ET): Estrogen is taken alone. Doctors most often prescribe a low dose of estrogen to be taken as a pill or patch every day. Estrogen may also be prescribed as a cream, vaginal ring, gel or spray. You should take the lowest dose of estrogen needed to relieve menopause symptoms and/or to prevent osteoporosis. This type of HT is used if a woman has had a hysterectomy. Estrogen Progesterone/Progestin Hormone Therapy (EPT): Also called combination therapy, this form of HT combines doses of estrogen and progesterone (progestin is a synthetic form of progesterone). This type of HT is used if a woman still has her uterus. What are the benefits of taking HT? HT is prescribed to relieve: Hot flashes Vaginal dryness that can result in painful intercourse Other problematic symptoms of menopause, such as night sweats and dry, itchy skin Other benefits of taking HT include: Reduced risk of developing osteoporosis and reduced risk of bone breakage Improvement of mood and overall sense of mental well-being in some women Decreased tooth loss Lowered risk of colon cancer Lowered risk of diabetes Modest improvement in joint pains Lower rate for women who take hormone therapy in their 50s. What are the risks of taking HT? While HT helps many women get through menopause, the treatment (like any prescription or even non-prescription medicines) is not risk-free. Known health risks include: An increased risk of endometrial cancer (only if a woman still has her uterus and is not taking a progestin along with estrogen). Increased risk of blood clots and stroke. However, in women within 5 years of menopause there was no statistically significant increase in stroke risk. Also, studies suggest that using estrogen delivered from the skin via a patch/cream might further lessen the risk of blood clots. Increased chance of gallbladder/gallstone problems. Increased risk of dementia if hormone therapy is started after a woman has been in menopause for 10 years. It is not yet known if it might be beneficial for women who start HT in their 50s. Most of our understanding about the benefits and risks of hormone therapy on the heart and breast come from the Women s Health Initiative (WHI) study (one of the largest studies done on hormone therapy): HT and the heart Recent analysis of WHI actually shows that the risk of heart disease may be related more to the advanced age of the participants as opposed to the HT. The study also found that HT given to younger women, at the onset of menopause, appeared to decrease the risk of heart disease. More specifically: An increased risk of heart disease is only seen in women taking long-term estrogen-progestin combination therapy (EPT) if they start HT in their mid-60s. There does not seem to be an increased risk of heart disease when women in their 50s start EPT. Estrogen alone (ET) has not been shown to increase the risk of heart disease. Analysis of the age since menopause actually shows a decrease in the risk of heart disease when ET was started in younger women (those just beginning menopause). Currently, it is not recommended to use hormone therapy solely for the purpose of preventing heart disease. However these studies give us reassurance that when women just newly approaching menopause need HT for a short time, it is safe to do so in terms of long term care pharmacist heart disease risk. HT and breast cancer Diagnosis of breast cancer increases when combination EPT is used beyond 3-5 years. This means that out of 10,000 women who use estrogen progestin therapy for more than 5 years, there will be 8 additional breast cancers diagnosed. In contrast, the WHI study showed women who use estrogen alone had no increase in risk of breast cancer even after 11 years of use. In fact, fewer breast cancers were seen in the group taking estrogen alone, though this was not statistically significant. When a woman comes off of hormone therapy, any potential increase in her risk of breast cancer quickly goes back to her baseline norm. This is why hormone therapy can be a safe option when women in their 50s (who are generally at lower risk for breast cancer compared to older women). Does starting HT closer to the time of menopause make it safer? One of the problems with the WHI study, which gave us much of our knowledge on the risks of HT, is that most women in the study were starting hormones in their mid-60s. Typically, women who need HT are newly menopausal, in their early 50s. Younger women in the WHI study had fewer risks and more benefits from HT. Newer studies are trying to understand the risks and benefits of HT in women in their 50s. One such study showed HT started early in postmenopausal women significantly reduced rate, heart attacks and heart failure. These postmenopausal women who started HT early and used it for more than 10 years were not at increased risk of breast cancer or stroke. What are some commonly used postmenopausal hormones? The following charts list the names of some, but not all, postmenopausal hormones. Types Brand Names Vaginal Tablet Vagifem Estrogen Pills Cenestin , Estinyl , Estrace , Menest , Ogen , Premarin , Femtrace Cream Estrace , Ogen , Premarin Vaginal Ring Estring , Femring Patch Kimberly , Climara , Minivelle , Estraderm , Vivelle , Vivelle-Dot , Menostar Progestin Types Brand Names Pills/Capsules Amen , Aygestin , Curretab , Cycrin , Megace , Prometrium , Provera Vaginal Gel Prochieve progesterone gel 4%, 8% Combination types Brand Names Pills Activella , FemHRT , Premphase , Prempro , Angeliq Patchs CombiPatch , Climara-Pro Who shouldn't take HT? HT is not usually recommended for women who have: Active or past breast cancer Recurrent or active endometrial cancer Abnormal vaginal bleeding that has not been evaluated Recurrent or active blood clots History of stroke Liver disease Known or suspected What are the side effects of HT? Like almost all medications, hormone therapy has side effects. The most common side effects are: Monthly bleeding (if progestin given cyclical) Irregular spotting Breast tenderness Less common side effects of hormone therapy include: Fluid retention Headaches (including migraine) Skin discoloration (brown or black spots) Increased breast density making mammogram interpretation more difficult Skin irritation under estrogen patch How can I reduce these side effects? Adjusting either the dosage or the form of the medication you are taking can often reduce side effects of HT. However, you should never make changes in your medication or stop taking it without first consulting your doctor. How can I know if HT is right for me? The balance of risks versus benefits of HT can be very different for each woman, depending on her age, family history, and personal medical history. It is important to allow enough time at an office visit to discuss the risks and benefits of hormone therapy. This is a question that should usually be addressed at a separate office visit to allow plenty of time for detailed discussion with your doctor. How long should I take HT? Since research on HT is ongoing, women should reevaluate their treatment plans each year. Discontinue HT (under your health care provider's guidance) if you develop a medical condition that would make it less safe for you. Based on the WHI study results, should I stop taking HT? It's important that you do not make any abrupt changes to your HT without consulting your doctor. He or she can discuss with you the benefits and risks of HT based on your individual circumstances. First, the therapy should not be continued or started to prevent heart disease. Women should consult their doctor about other methods of prevention, such as lifestyle changes, and cholesterol- and blood pressure-lowering drugs. Second, for osteoporosis prevention, women should consult their doctor and weigh the benefits against their personal risks. Alternate treatments also are available to prevent osteoporosis and fractures. Finally, women taking HT for relief of menopausal symptoms may reap more benefits than risks. Women should talk with their doctor about their personal risks and benefits. References: Effect of Hormone Replacement Therapy on Cardiovascular Events in Recently Postmenopausal Women: Randomized Trial. BMJ Jul 2012. [place] [employer]. The 2012 hormone therapy position statement Accessed 03/05/13. [place] [employer]. [place] [employer] Medical Guidelines for the Clinical Practice for the Diagnosis and Treatment of Menopause Accessed 03/29/13. Committee on Gynecological Practice. Postmenopausal estrogen therapy: Route of administration and risk of venous thromboembolism. Obstet Gynecol 2013 Jan; 121:887. Estrogen alone and joint symptoms in the Women's Health Initiative randomized trial. Menopause 2012Dec 22. Non-Hormonal Ways to [place] with Hot Flashes and Menopause Hormone therapy is the most effective therapy for hot flashes. It is also the only FDA approved method to treat hot flashes. However, other non-hormonal options are available for women who are suffering from symptoms, but are not yet ready to consider hormone therapy. Some women are not appropriate candidates for hormone therapy, such as those have been recently treated for breast cancer, ovarian cancer, or endometrial/uterine cancer. It is important to remember that when used appropriately, hormone therapy can be a safe and effective option for many women. Here we will review non-hormonal treatment options for women. Knowing the triggers of hot flashes Hot flashes may be precipitated by hot weather, smoking, caffeine, spicy foods, alcohol, tight clothing, heat and stress. Identify and avoid your hot flash triggers. Some women notice hot flashes when they eat a lot of sugar. Exercising in warm temperatures might make hot flashes worse. Diet Avoiding caffeine, spicy foods, and alcohol can help lessen both the number and severity of hot flashes. Many women try to incorporate more plant estrogens into their diet. Plant estrogens, such as isoflavones, are thought to have weak estrogen-like effects that may reduce hot flashes. They may work in the body like a weak form of estrogen. Examples of plant estrogens include: soybeans, chickpeas, lentils, flaxseed, grains, beans, fruits, red clover and vegetables. In general, soybeans, chickpeas, and lentils are considered to have the most powerful plant estrogens, though their effect is much less than that of human estrogen. Try to choose natural foods rather than supplements. Also remember that only crushed or ground forms of flaxseed are likely to help (as compared to the whole seed or seed oil forms). What foods have high amounts of isoflavones Food Isoflavone Amount (Mg) In Food (100g) Soymilk 9.65 Soybeans, green, raw 151.17 Soy flour (textured) 148.61 148.61 Soybeans, dry roasted 128.35 Instant beverage soy, powder, not reconstituted 109.51 Miso soup mix, dry 60.39 Soybean chips 54.16 Tempeh, cooked 53.00 Soybean curd cheese 28.20 Tofu, silken 27.91 Tofu, yogurt 16.30 Source: USDA -- [place] Database on the Isoflavone Content of Foods, 1998 Lifestyle changes Reducing the temperature in a room, dressing in layers, and the use of a fan while asleep can be effective ways to help deal with troublesome hot flashes. Women who are overweight tend to have more bothersome hot flashes, therefore weight loss can be helpful. Quitting smoking has a dual importance during menopause. First, smoking contributes to the increased cardiovascular risks of being postmenopausal. Second, smokers tend to experience more hot flashes. Women who lead a sedentary life seem to suffer more from hot flashes; however, it is best to exercise in a cooler environment. Try deep, slow abdominal breathing (6 to 8 breaths per minute). Practice deep breathing for 15 minutes in the morning, 15 minutes in the evening and at the onset of hot flashes. For some women, wearing socks to bed is helpful as it can help to cool core body temperature. Relieving insomnia Keep the bedroom cool to prevent night sweats. Avoid using sleeping pills. Exercise daily. Avoid caffeine and alcohol at night. Take a warm bath or shower at bedtime. Try milk products at bedtime or during the night (but avoid products that contain caffeine). Coping with mood swings, fears, and depression Find a self-calming skill to practice, such as yoga, meditation or slow, deep breathing. Avoid tranquilizers, if possible. Engage in a creative outlet that fosters a sense of achievement. Stay connected with your family and community; nurture your friendships. Relieving painful intercourse Try using a vaginal water-based moisturizing lotion or lubricant during intercourse. These are sold without a prescription near the condoms in most stores. Common names include-Astroglide and [place] liquid . Avoid Vaseline , as it may lead to yeast infections. Prescription and nonprescription remedies A number of non-hormonal remedies are available for the treatment of hot flashes. Some of these remedies (e.g., black cohosh and soy products) are available [id number] but are not FDA-approved. Some prescription medications are used off label to help reduce hot flashes. Using a product off label means that it is not FDA approved for the treatment of hot flashes, but is often used because it can be safe and effective for hot flash treatment.(considered the more effective non-hormonal treatments): Drug Side Effect Effectiveness venlafaxine (Effexor ) Nausea, change in bowel habits, headache (temporary side effects for most). Elevated blood pressure (at high doses) Effectiveness has been proven in several well-designed studies. One of the safer medications for women taking tamoxifen (no drug interaction). desvenlafaxine (Pristiq ) Similar to venlafaxine. Nausea, change in bowel habits, headache (temporary side effects for most). Elevated blood pressure (at high doses) Improvement in hot flashes compared to placebo has been shown. Newer med compared to venlafaxine, so a smaller number of studies are available. fluoxetine (Prozac ) Nausea, change in bowel habits, decreased libido, insomnia. Should be avoided in women taking tamoxifen. Improvement in hot flashes has been shown in well-designed studies. paroxetine (Paxil ) Nausea, change in bowel habits, decreased libido, dry mouth, weight gain (not common) Should be avoided in women taking tamoxifen. eTends to be more effective for sleep in women who are also suffering with insomnia. Improvement in hot flashes has been shown in well-designed studies. scitalopram (Lexapro ) Nausea, change in bowel habits, decreased libido, abnormal EKG (not common) Improvement in hot flashes has been shown in well-designed studies. Gabapentin (Neurontin ) Fatigue, dizziness, nausea, disorientation, swelling, weight gain Tends to be more effective for sleep in women who are also suffering with insomnia. Clonidine (Catapres ) Dry mouth, drowsiness, fatigue, constipation, lowers blood pressure Relieved hot flashes in some, but not all studies.Less commonly used than some of the other options. Non-prescription, herbal, [id number] therapies: Drug Side Effects Effectiveness Evening [place] Oil Nausea, diarrhea, headache. Only one well-designed study showing not effective. Black cohosh Mild stomach upset. Safe up to 6 months only due to possible estrogen-like effects. Liver toxicity has been reported. Some small, short-term studies have suggested benefits, however most studies do not suggest that it works. Soy (plant estrogen) Also referred to as phytoestrogens. Appears safe if consumed in foods. In supplement form, consistency of dose and quality can be a concern. Supplements are not recommended for breast cancer survivors For the most part, results from clinical studies show that phytoestrogens are not effective for treatment of hot flashes. Acupuncture Uncomfortable for some, often costly. Generally well-tolerated, but multiple visits required Individual trials have reported some benefits, but larger studies have not shown any improvement over placebo procedures. However some women do report benefits with this, so it is possible that more well-designed studies are needed to answer this question. Vitamin E 13% increase risk of heart failure. Might increase rate in those who use high doses for a long time. A higher risk of prostate cancer has also been shown, but applies only to men. One study showing effective. However the improvement seen in this was only one less hot flash per day compared to placebo. Are the [id number] herbal products (botanicals) safe? While safe when taken in moderate amounts through diet, the consumption of extraordinary amounts of soy and isoflavone supplements may be harmful to women with a history of estrogen-dependent cancer, like breast cancer, and possibly to other women as well. More research is needed to determine the safety and effectiveness of botanical treatments. For example, Ginseng, [place], Wild yam, Progesterone cream, reflexology, and magnetic devices are sold to help menopausal symptoms, but there are no good studies looking at their safety or effectiveness. To make an informed decision about the use of these treatments, be sure to discuss them with your doctor. Because little is known about many botanicals, the best way to evaluate their safety and effectiveness is to become an educated consumer. Here are some tips to consider when shopping for alternative therapies. Ask yourself the following questions: What is the treatment? What does it involve? How does it work? Why does it work? Are there any risks? What are the side effects? Is it effective? (Ask for evidence or proof) How much does it cost? Once you answer these questions, discuss the therapy with your doctor. Make sure your doctor knows what therapy you are considering in order to discuss possible interactions or side effects with your current treatment. What are warning signs that a product may not be legitimate? When trying to determine whether or not a product is what it says it is, one of the elements you may want to look at is how the product is promoted. Be cautious of products promoted through: [employer] Direct mailings [place] PUD Ads disguised as valid news articles Ads in the back of magazines Additional red flags to look for include: Big claims: If products claim to be a cure for your condition, or gives outrageous claims, be cautious. Source: Be wary if the product is only offered through one flour inspector or purchased only through a health care provider s office. Ingredients: Make sure all of the active ingredients are listed, and don t trust secret formulas. Testimonials: Remember that only people who are satisfied with a product give testimonials and that they may be getting paid for their endorsement References: National Center for Complementary and Alternative Medicine. Vitamin E. [facility].nih.gov Assessed January 05, 2013 Alka Mercedes al. meta-analysis: High Dosage Vitamin E. Supplementation Might Increase All Cause Mortality. Annals of Internal Medicine October 10, 2004. annals.org National Center for Complementary and Alternative Medicine. Menopausal Symptoms and CAM. nccam.nih.gov Accessed January 05, 2013 [place] [employer], Hormone Therapy for women in 2012. www.menopause.org Assessed January 05, 2013 [place] [employer]nec[employer]. Publications. The Menopause Years. www.acog.org Accessed 12/04/2010 Centers for Disease Control and Prevention. Women s Reproductive Health: Menopause. www.cdc.gov Accessed 12/04/2010 National [place] on Aging. Age Page: Menopause. www.diogenes.nih.gov Accessed 12/04/2010 Minimizing irritation of the vulva (area around the vagina) Wear white cotton underwear. Avoid synthetic fabrics and tight clothing. Sleep wearing shorts or pajama bottoms without underwear. Shower as soon as possible after exercise. Avoid clothing detergents and soaps with perfumes or dyes. Use warm (not hot) water to wash the vulva and if you use soap use a product designed for sensitive skin (like Dove or Cetaphil). Do not douche or use creams/powders in the vulvar area unless instructed by your physician. If you must douche, use only plain warm water. Make sure the vulva is dry before dressing by patting dry with a towel. Avoid vigorous rubbing with the towel. You may want to use the blow dryer (on the cool setting only!) on the vulva. The most important way to let your body heal is by avoiding scratching. Many patients find it difficult to avoid scratching at night when they are most aware of the itchiness. You can try taking Benadryl just before bedtime. Some women find it helpful to wear cotton gloves to bed to avoid scratching at night. Menopause Symptoms Not all women experiences menopause in the same way. For some, menopause can bring on an array of uncomfortable symptoms. Others may experience few if any discomforts. This information has been prepared to help you manage the most common changes associated with the midlife transition. RELIEVING HOT FLASHES * Identify and avoid your hot flash triggers. Common triggers may include stress, caffeine, alcohol, spicy foods, tight clothing, heat and cigarette smoke. * Keep the bedroom cool. Use fans during the day. Wear light layers of clothes with natural fibers. * Try deep, slow abdominal paced breathing (6 to 8 breaths per minute). Practice deep breathing for 15 minutes in the morning, 15 minutes in the evening and at the onset of hot flashes. * Exercise daily. Walking, swimming, dancing and bicycling with helmet are good choices along with yoga. * Add soy protein in the form of food (40-60 mg) to your diet daily in place of animal protein. Promensil and isoflavone tablets have NOT been shown to significantly help menopausal symptoms * Black cohosh (in the form of Remifemin) can be used for hot flashes and has been approved by [place] Commission E for only 6 months of use, however has NOT been well studied in the [place] for detention effects and THERE HAVE BEEN REPORTS OF LIVER TOXICITY WITH BLACK COHOSH USE. (Avoid kava kava, valerian root and beware that most herbal products are NOT regulated in the [place] and some have been associated with liver toxicity) NOTE: HORMONE THERAPY (HT) is the MOST EFFECTIVE treatment and the only FDA approved treatment for menopausal symptoms. Any form of hormones, including 'bioidentical' hormones have risks as well as benefits. * Antidepressants like Effexor (venlaflaxine) a NSRI or Pristiq (desvenlafaxine) another agent, Neurontin (gabapentin) may help block hot flashes and all have risks and benefits like any prescription or off the shelf medicine. * Use of Bellergal is discouraged as it contains an addictive barbiturate. RELIEVING INSOMNIA * Keep the bedroom cool to prevent night sweats. Special chill pillows that are cool are available. * Avoid using sleeping pills. * Exercise daily but not right before bedtime. * Avoid caffeine and alcohol at night. * Take a warm shower at bedtime. COPING WITH MOOD SWINGS, FEARS AND DEPRESSION * Find a self-calming skill to practice, such as yoga, meditation or slow deep breathing. * Avoid tranquilizers, if possible, however prescription anti-depressants can be very effective. * Engage in a creative outlet that fosters a sense of achievement. * Stay connected with your family and community; nurture your friendships. RELIEVING PAINFUL INTERCOURSE * Try using a vaginal water-based moisturizing lotion 3 times a week (like Replens or SILK-E) or lubricant during intercourse like KY jelly or Astroglide. *Local estrogen treatments for the vagina/bladder are available as a cream, tablet or vaginal ring. HELPFUL WEB SITES www.menopause.org www.[email or web address]/[email or web address] alth documented in this encounter [facility] 03-27-2022 History of Presen t illness Narrative Melvin is a 52 year old who presents for an annual gynecologic exam vaginal itching/irritation. After annual exam 12/15/2019 year no further diflucan use or yeast infection. Stopped using Nuva Ring and this has helped. No further vaginal pain but having external itching. Did not return after visit with continued vulvar itching and has been symptomatic since that time. Denies continued itch scratch cycle and tries to avoid touching. Discomfort during intercourse at insertion due to touching of vulva but not internal or deep pain. Denies any vaginal discharge or other concerns. Menses: cycles every 25 days and 4-5 days of flow. Contraception: condoms HPV vaccine: No Last Pap: 12/22/2019 normal HPV: 12/19/2019 negative History of abnormal pap: No Last mammogram: 2021 normal Sexually active: Yes Patient concerns for STD exposure: No. Pain with intercourse: Yes Hot flashes: No Night sweats: Yes, random Vaginal dryness: No Mood swings: No Mariaelena Sosa PCP OB History T2 L2 SAB2 IAB0 Ectopic0 Multiple0 Live Births2 Comment: Adopted twins from [place] [employer] History LMP: 03/12/2022, Having periods Age at Menarche: Age at First : Age at Menopause: [employer] History Comments: Sexual Activity: Yes; Male; Nuvaring Contraception: Inserts PAST MEDICAL HISTORY Diagnosis Date Miscarriage 2 Miscarriages PAST SURGICAL HISTORY Procedure Laterality Date PAST SURGICAL HISTORY OF WISDOM TEETH TONSILLECTOMY PRIMARY/SECONDARY <AGE 14 FAMILY HISTORY Problem Relation Age of Onset Psychiatry Mother ADD/?Bipolar Heart Mother Diabetes Mother Pre Diabetic Diabetes Father Heart Father other (CORONARY ARTRY DISEASE) Father WITH STENT PLACEMENT other (Parkinson's) Father No Known Problems Sister Hypertension Brother Psychiatry Brother ADD Alzheimer's Disease Maternal Grandmother Osteoporosis Maternal Grandmother No Known Problems Daughter No Known Problems Daughter other (Other) Son Adopted other (Other) Son Adopted Cancer Maternal Uncle STOMACH CANCER Diabetes Maternal Uncle SOCIAL HISTORY Social History Tobacco Use Smoking status: Never Smoker Smokeless tobacco: Never Used Vaping Use Vaping Use: Never used Substance Use Topics Alcohol use: Yes Comment: Occasionally Drug use: No REVIEW OF SYSTEMS Abdomen: No abdominal pain, nausea, vomiting, diarrhea, or constipation. No bloating, early satiety, indigestion, or increased flatulence. Bladder: No dysuria, gross hematuria, urinary frequency, urinary urgency, or incontinence. Feels like she is not totally eliminating. Breast: No breast lumps, nipple d/c, overlying skin changes, redness or skin retraction. Allergies and current medication updated:Yes EXAM: BP 118/68 Ht 5' 5.5 (1.66m) Wt 218 lb (98.9kg) LMP 03/12/2022 BMI 35.71 kg/(m^2). GENERAL: pleasant, female in no apparent distress HEENT: Normocephalic, atraumatic, mucus membranes moist and no lesions NECK: Supple, full range of motion, no adenopathy and thyroid normal DERMATOLOGY: Normal, without lesions, non-icteric and non-hirsute BREAST: soft, non-tender, symmetric, no dominant mass, normal nipple-areolar complex, no lymphadenopathy and no nipple discharge CHEST: Normal inspiratory effort ABDOMEN: soft, non-tender and no masses PELVIC: external genitalia normal, normal Bartholin's glands, urethra, Westgate's glands, no vulvar lesions, no cervical lesions, good vaginal support, physiologic discharge present, normal appearing perineal body and perianal region. Labia majora with lichenification. Vulva erythematous. No lesions or plaques. BIMANUAL: uterus normal size, shape and consistency, no adnexal masses and non-tender RECTOVAGINAL: deferred. NEURO: alert and oriented x3,exam grossly non-focal EXTREMITIES: normal ASSESSMENT/PLAN: 1. Encounter for gynecological examination with abnormal finding - ICD9: V72.31, ICD10: Z01.411 (primary diagnosis) - Completed pelvic and breast exam - Encouraged monthly BSE - Follow up for annual exam in one year. 2. Encounter for screening mammogram for breast cancer - ICD9: V76.12, ICD10: Z12.31 - Completed pelvic and breast exam - Encouraged monthly BSE - Follow up for annual exam in one year. - RUSSEL SCREENING W YOMAIRA 3. Vulvar pruritus - ICD9: 698.1, ICD10: L29.2 - BIOPSY OF VULVA 4. Lichenification - ICD9: 698.3, ICD10: L28.0 -Reviewed with patient recommendation for vulvar biopsy. Will discuss management and treatment after biopsy. Possible lichen sclerosis vs. Dermatitis. 5. Class 2 obesity due to excess calories without serious comorbidity with body mass index (BMI) of 35.0 to 35.9 in adult - ICD9: 278.00, V85.35, ICD10: E66.09, Z68.35 1) Health maintenance: Pap/HPV up to date. Mammogram ordered. Nutrition, exercise and routine health maintenance exams reviewed. Calcium/Vitamin D supplementation information provided. Lipids/glucose: followed by PCP Vitamin D: followed by PCP 2) Contraception: none. Contraceptive options reviewed and information provided. 3) STD screening: Declined STD check. 4) Follow up one year or sooner as needed 5) Colonoscopy to discuss with primary care as she was already instructed to have done, she will message PCP. Rocco Pepe APRN.CNM documented in this encounter [facility] 02-12-2022 History of Presen t illness Narrative Radiology Service Progress Note PATIENT NAME: Melvin Lees DATE OF SERVICE: February 12, 2022 TIME: 1:17 PM PATIENT IDENTITY VERIFICATION COMPLETED USING TWO (2) IDENTIFIERS: Name and Date of confirmed by patient verbally. FALL SCREENING: Has the patient had 2 falls in the last year or 1 fall with injury or currently using an Ambulatory Assistive Device (Walker, Cane, Wheelchair, Crutches, etc.)? No PATIENT GENDER DATA: Female. status: : No status: NO. PATIENT RELEVANT IMPLANT DATA REVIEWED: Not Applicable RADIOLOGY DEPARTMENT: Mammography PERIPHERAL IV DATA: Not applicable SIGNED BY: RT Trisha(R) February 12, 2022 1:17 PM documented in this encounter [facility] 01-25-2022 History of Presen t illness Narrative Subjective HPI HPI Melvin Lees is a 51 year old female who presents today for CC of scratchy throat, had strep 2 weeks ago, felt well after amox treatment. Has tried nothing for relief. Symptoms are worsened by nothing. Risk factors family member dx with strep recently. denies uri symptoms/fever. .Patient presents with: Follow Up: Pt reported Hx Strep x 2wks prior reported sore throat x1 day PAST MEDICAL HISTORY Diagnosis Date Miscarriage 2 Miscarriages PAST SURGICAL HISTORY Procedure Laterality Date PAST SURGICAL HISTORY OF WISDOM TEETH TONSILLECTOMY PRIMARY/SECONDARY <AGE 14 ALLERGIES Environmental [Other] MEDICATIONS fluticasone (FLONASE) 50 mcg/actuation nasal spray Use 2 Sprays in each nostril once daily. Rinse mouth after use. Lactobacillus acidophilus (PROBIOTIC ORAL) Take by mouth. MULTIVITAMIN ORAL Take by mouth. Etonogestrel-Ethinyl Estradiol (NUVARING) 0.12-0.015 mg/24 hr vaginal ring Use 1 Each vaginally as directed. FAMILY HISTORY Problem Relation Age of Onset Psychiatry Mother ADD/?Bipolar Heart Mother Diabetes Mother Pre Diabetic Diabetes Father Heart Father other (CORONARY ARTRY DISEASE) Father WITH STENT PLACEMENT other (Parkinson's) Father No Known Problems Sister Alzheimer's Disease Maternal Grandmother Osteoporosis Maternal Grandmother No Known Problems Daughter No Known Problems Daughter Cancer Maternal Uncle STOMACH CANCER Diabetes Maternal Uncle Hypertension Brother Psychiatry Brother ADD other (Other) Son Adopted other (Other) Son Adopted Social History Tobacco Use Smoking status: Never Smoker Smokeless tobacco: Never Used Vaping Use Vaping Use: Never used Substance Use Topics Alcohol use: Yes Comment: Occasionally Drug use: No Review of Systems Constitutional: Negative for fever. HENT: Positive for sore throat. Negative for congestion, ear pain and nosebleeds. Respiratory: Negative for cough, shortness of breath and wheezing. Musculoskeletal: Negative for neck pain. Objective Blood pressure 118/70, pulse 82, temperature 36.6 C (97.8 F), resp. rate 16, weight 100.9 kg (222 lb 6.4 oz), last menstrual period 01/14/2022, SpO2 98 %. Physical Exam Constitutional: General: She is not in acute distress. Appearance: She is not toxic-appearing or diaphoretic. HENT: Head: Normocephalic and atraumatic. Right Ear: Hearing, tympanic membrane, ear canal and external ear normal. Left Ear: Hearing, tympanic membrane, ear canal and external ear normal. Nose: Nose normal. Mouth/Throat: Lips: [place]. Mouth: Mucous membranes are moist. Pharynx: Uvula midline. No pharyngeal swelling, oropharyngeal exudate, posterior oropharyngeal erythema or uvula swelling. Pulmonary: Effort: Pulmonary effort is normal. No accessory muscle usage or respiratory distress. Lymphadenopathy: Cervical: Cervical adenopathy (slight, nontender. ) present. Right cervical: Superficial cervical adenopathy present. Left cervical: Superficial cervical adenopathy present. Neurological: Mental Status: She is alert and oriented to person, place, and time. ASSESSMENT/PLAN: 1. Sore throat - ICD9: 462, ICD10: J02.9 - suspect viral - Alere Strep Test neg, no culture pending - Discussed supportive care treatment with fluids, rest and analgesia. - The patient should follow up in 3-5 days if symptoms persist or worsen - ALERE STREP A TEST (AG) Agrees to plan Mick Johnson APRN.KOURTNEY documented in this encounter [facility] 12-30-2021 History of Presen t illness Narrative Subjective HPI HPI Melvin Lees is a 51 year old female who presents today for CC of st, ear pain. This started 10 days ago. Has tried otc medication without relief. Symptoms are worsened by nothing. Risk factors hx of recurrent strep throat. Denies cough, fever, congestion, ear drainage. .Patient presents with: Sore Throat: HENRRY clogged ears x10 days PAST MEDICAL HISTORY Diagnosis Date Miscarriage 2 Miscarriages PAST SURGICAL HISTORY Procedure Laterality Date PAST SURGICAL HISTORY OF WISDOM TEETH TONSILLECTOMY PRIMARY/SECONDARY <AGE 14 ALLERGIES Environmental [Other] MEDICATIONS Lactobacillus acidophilus (PROBIOTIC ORAL) Take by mouth. Etonogestrel-Ethinyl Estradiol (NUVARING) 0.12-0.015 mg/24 hr vaginal ring Use 1 Each vaginally as directed. MULTIVITAMIN ORAL Take by mouth. amoxicillin (POLYMOX, AMOXIL) 500 mg capsule Take 1 capsule by mouth twice daily for 10 days. predniSONE (DELTASONE) 20 mg tablet Take 2 tablets by mouth once daily for 5 days. fluticasone (FLONASE) 50 mcg/actuation nasal spray Use 2 Sprays in each nostril once daily. Rinse mouth after use. FAMILY HISTORY Problem Relation Age of Onset Psychiatry Mother ADD/?Bipolar Heart Mother Diabetes Mother Pre Diabetic Diabetes Father Heart Father other (CORONARY ARTRY DISEASE) Father WITH STENT PLACEMENT other (Parkinson's) Father No Known Problems Sister Alzheimer's Disease Maternal Grandmother Osteoporosis Maternal Grandmother No Known Problems Daughter No Known Problems Daughter Cancer Maternal Uncle STOMACH CANCER Diabetes Maternal Uncle Hypertension Brother Psychiatry Brother ADD other (Other) Son Adopted other (Other) Son Adopted Social History Tobacco Use Smoking status: Never Smoker Smokeless tobacco: Never Used Vaping Use Vaping Use: Never used Substance Use Topics Alcohol use: Yes Comment: Occasionally Drug use: No ROS Objective Blood pressure 110/70, pulse 88, temperature 36.3 C (97.4 F), resp. rate 18, weight 100 kg (220 lb 6.4 oz), last menstrual period 11/25/2019, SpO2 98 %. Physical Exam Constitutional: General: She is not in acute distress. Appearance: She is not toxic-appearing or diaphoretic. HENT: Head: Normocephalic and atraumatic. Right Ear: Hearing, tympanic membrane, ear canal and external ear normal. Left Ear: Hearing, tympanic membrane, ear canal and external ear normal. Nose: Nose normal. Mouth/Throat: Pharynx: Uvula midline. No pharyngeal swelling, oropharyngeal exudate, posterior oropharyngeal erythema or uvula swelling. Eyes: General: Lids are normal. No scleral icterus. Right eye: No discharge. Left eye: No discharge. Conjunctiva/sclera: Conjunctivae normal. Pupils: Pupils are equal, round, and reactive to light. Neck: Trachea: Trachea normal. Cardiovascular: Rate and Rhythm: Normal rate and regular rhythm. Heart sounds: Normal heart sounds. Pulmonary: Effort: Pulmonary effort is normal. Breath sounds: Normal breath sounds. Musculoskeletal: Cervical back: Normal range of motion and neck supple. Lymphadenopathy: Cervical: No cervical adenopathy. Right cervical: No superficial cervical adenopathy. Left cervical: No superficial cervical adenopathy. Skin: Findings: No rash. Neurological: Mental Status: She is alert and oriented to person, place, and time. ASSESSMENT/PLAN: 1. Strep throat - ICD9: 034.0, ICD10: J02.0 (primary diagnosis) - suspect strep - Alere Strep Test pos, no culture pending - antibiotic as written - Discussed supportive care treatment with fluids, rest and analgesia. - The patient should follow up in 3-5 days if symptoms persist or worsen - AMOXICILLIN 500 MG CAPSULE 2. Sore throat - ICD9: 462, ICD10: J02.9 As above - ALERE STREP A TEST (AG) 3. ETD (Eustachian tube dysfunction), bilateral - ICD9: 381.81, ICD10: H69.83 -use medication as prescribed -follow up if symptoms persist, worsen, change - PREDNISONE 20 MG TABLET - FLUTICASONE PROPIONATE 50 MCG/ACTUATION NASAL SPRAY,SUSPENSION 4. Feared condition not demonstrated - ICD9: V65.5, ICD10: Z71.1 Hold until after atb if you experience s/s yeast infection fill/take diflucan - FLUCONAZOLE 150 MG TABLET Agrees to plan Mick Johnson APRN.KOURTNEY documented in this encounter [facility] documented as of this encounter (statuses as of 12/30/2021) [facility]10[facility] History of Past illness Narrative* Problem Noted Date Resolved Date First trimester bleeding 08/04/2012 013 Overview: Patient had recent miscarriage May 06, 2012. She states she has noted pink spotting when she wipes on June 25 the , and then again this morning. She denies any cramping or pain. Patient given an appointment Dr. Galicia today. Obesity, unspecified 08/04/2012 06/05/2013 Overview: 08/04/2012Patient is obese. Will plan on one-hour GCT at new OB visit. Immunization due 08/04/2012 07/16/2013 Overview: Patient states her tetanus vaccine is not up to date History of infection 08/04/2012 07/16/2013 Overview: 08/04/2012Patient had a perineal wound infection post that was treated by antibiotics and silver nitrate after the of her first child. Threatened in early 2 06/05/2013 Overview: August 07, 2012 quant doubled and erassuring, recommend US in 2 weeks at new ob visit. Saw 2 cm right corpus luteum cyst, unlikely ectopic due to patient asymptomatic but ectopic precautions reviewed Supervision of other normal 04/13/2011 06/05/2013 ADVANCED MATERNAL AGE:MULTIPARA [659.63] 011 06/05/2013 Overview: 08/04/2012Pt is 42 years old. Advanced Maternal age discussed. Pt refused handouts on Genetic Amniocentesis and [facility] handout on Quad Marker Screen given and discussed. Level II Ultrasound, Early Screening in Program and Dr. Hylton's services discussed. Disruption of perineal wound, 008 06/13/2010 Elderly primigravida, antepartum 04/01/2008 07/21/2008 documented as of this encounter (statuses as of 01/25/2022) [facility] History of Past illness Narrative* Problem Noted Date Resolved Date First trimester bleeding 08/04/2012 013 Overview: Patient had recent miscarriage May 06, 2012. She states she has noted pink spotting when she wipes on June 25 2 the , and then again this morning. She denies any cramping or pain. Patient given an appointment Dr. Galicia today. Obesity, unspecified 08/04/2012 06/05/2013 Overview: 08/04/2012Patient is obese. Will plan on one-hour GCT at new OB visit. Immunization due 08/04/2012 07/16/2013 Overview: Patient states her tetanus vaccine is not up to date History of infection 08/04/2012 07/16/2013 Overview: 08/04/2012Patient had a perineal wound infection post that was treated by antibiotics and silver nitrate after the of her first child. Threatened in early 2 06/05/2013 Overview: August 07, 2012 quant doubled and erassuring, recommend US in 2 weeks at new ob visit. Saw 2 cm right corpus luteum cyst, unlikely ectopic due to patient asymptomatic but ectopic precautions reviewed Supervision of other normal 04/13/2011 06/05/2013 ADVANCED MATERNAL AGE:MULTIPARA [659.63] 011 06/05/2013 Overview: 08/04/2012Pt is 42 years old. Advanced Maternal age discussed. Pt refused handouts on Genetic Amniocentesis and [facility] handout on Quad Marker Screen given and discussed. Level II Ultrasound, Early Screening in Program and Dr. Hylton's services discussed. Disruption of perineal wound, 008 06/13/2010 Elderly primigravida, antepartum 04/01/2008 07/21/2008 documented as of this encounter (statuses as of 02/13/2022) [facility] History of Past illness Narrative* Problem Noted Date Resolved Date First trimester bleeding 08/04/2012 013 Overview: Patient had recent miscarriage May 06, 2012. She states she has noted pink spotting when she wipes on June 25 the , and then again this morning. She denies any cramping or pain. Patient given an appointment Dr. Galicia today. Obesity, unspecified 08/04/2012 06/05/2013 Overview: 08/04/2012Patient is obese. Will plan on one-hour GCT at new OB visit. Immunization due 08/04/2012 07/16/2013 Overview: Patient states her tetanus vaccine is not up to date History of infection 08/04/2012 07/16/2013 Overview: 08/04/2012Patient had a perineal wound infection post that was treated by antibiotics and silver nitrate after the of her first child. Threatened in early 2 06/05/2013 Overview: August 07, 2012 quant doubled and erassuring, recommend US in 2 weeks at new ob visit. Saw 2 cm right corpus luteum cyst, unlikely ectopic due to patient asymptomatic but ectopic precautions reviewed Supervision of other normal 04/13/2011 06/05/2013 ADVANCED MATERNAL AGE:MULTIPARA [659.63] 011 06/05/2013 Overview: 08/04/2012Pt is 42 years old. Advanced Maternal age discussed. Pt refused handouts on Genetic Amniocentesis and [employer] handout on Quad Marker Screen given and discussed. Level II Ultrasound, Early Screening in Program and Dr. Hylton's services discussed. Disruption of perineal wound, 008 06/13/2010 Elderly primigravida, antepartum 04/01/2008 07/21/2008 documented as of this encounter (statuses as of 03/28/2022) [facility]10-29-2012 History of Past illness Narrative* Problem Noted Date Resolved Date First trimester bleeding 08/04/2012 013 Overview: Patient had recent miscarriage May 06, 2012. She states she has noted pink spotting when she wipes on June 25 the , and then again this morning. She denies any cramping or pain. Patient given an appointment Dr. Galicia today. Obesity, unspecified 08/04/2012 06/05/2013 Overview: 08/04/2012Patient is obese. Will plan on one-hour GCT at new OB visit. Immunization due 08/04/2012 07/16/2013 Overview: Patient states her tetanus vaccine is not up to date History of infection 08/04/2012 07/16/2013 Overview: 08/04/2012Patient had a perineal wound infection post that was treated by antibiotics and silver nitrate after the of her first child. Threatened in early 2 06/05/2013 Overview: August 07, 2012 quant doubled and erassuring, recommend US in 2 weeks at new ob visit. Saw 2 cm right corpus luteum cyst, unlikely ectopic due to patient asymptomatic but ectopic precautions reviewed Supervision of other normal 04/13/2011 06/05/2013 ADVANCED MATERNAL AGE:MULTIPARA [659.63] 011 06/05/2013 Overview: 08/04/2012Pt is 42 years old. Advanced Maternal age discussed. Pt refused handouts on Genetic Amniocentesis and [employer] handout on Quad Marker Screen given and discussed. Level II Ultrasound, Early Screening in Program and Dr. Hylton's services discussed. Disruption of perineal wound, 008 06/13/2010 Elderly primigravida, antepartum 04/01/2008 07/21/2008 documented as of this encounter (statuses as of 04/03/2022) [facility]10-29-2012 History of Past illness Narrative* Problem Noted Date Resolved Date First trimester bleeding 08/04/2012 013 Overview: Patient had recent miscarriage May 06, 2012. She states she has noted pink spotting when she wipes on June 25 2 the , and then again this morning. She denies any cramping or pain. Patient given an appointment Dr. Galicia today. Obesity, unspecified 08/04/2012 06/05/2013 Overview: 08/04/2012Patient is obese. Will plan on one-hour GCT at new OB visit. Immunization due 08/04/2012 07/16/2013 Overview: Patient states her tetanus vaccine is not up to date History of infection 08/04/2012 07/16/2013 Overview: 08/04/2012Patient had a perineal wound infection post that was treated by antibiotics and silver nitrate after the of her first child. Threatened in early 2 06/05/2013 Overview: August 07, 2012 quant doubled and erassuring, recommend US in 2 weeks at new ob visit. Saw 2 cm right corpus luteum cyst, unlikely ectopic due to patient asymptomatic but ectopic precautions reviewed Supervision of other normal 04/13/2011 06/05/2013 ADVANCED MATERNAL AGE:MULTIPARA [659.63] 011 06/05/2013 Overview: 08/04/2012Pt is 42 years old. Advanced Maternal age discussed. Pt refused handouts on Genetic Amniocentesis and [employer] handout on Quad Marker Screen given and discussed. Level II Ultrasound, Early Screening in Program and Dr. Hylton's services discussed. Disruption of perineal wound, 008 06/13/2010 Elderly primigravida, antepartum 04/01/2008 07/21/2008 documented as of this encounter (statuses as of 04/23/2022) [facility]10-[facility]-2012 History of Past illness Narrative* Problem Noted Date Resolved Date First trimester bleeding 08/04/2012 013 Overview: Patient had recent miscarriage May 06, 2012. She states she has noted pink spotting when she wipes on June 25 2 the , and then again this morning. She denies any cramping or pain. Patient given an appointment Dr. Galicia today. Obesity, unspecified 08/04/2012 06/05/2013 Overview: 08/04/2012Patient is obese. Will plan on one-hour GCT at new OB visit. Immunization due 08/04/2012 07/16/2013 Overview: Patient states her tetanus vaccine is not up to date History of infection 08/04/2012 07/16/2013 Overview: 08/04/2012Patient had a perineal wound infection post that was treated by antibiotics and silver nitrate after the of her first child. Threatened in early 2 06/05/2013 Overview: August 07, 2012 quant doubled and erassuring, recommend US in 2 weeks at new ob visit. Saw 2 cm right corpus luteum cyst, unlikely ectopic due to patient asymptomatic but ectopic precautions reviewed Supervision of other normal 04/13/2011 06/05/2013 ADVANCED MATERNAL AGE:MULTIPARA [659.63] 011 06/05/2013 Overview: 08/04/2012Pt is 42 years old. Advanced Maternal age discussed. Pt refused handouts on Genetic Amniocentesis and [employer] handout on Quad Marker Screen given and discussed. Level II Ultrasound, Early Screening in Program and Dr. Hylton's services discussed. Disruption of perineal wound, 008 06/13/2010 Elderly primigravida, antepartum 04/01/2008 07/21/2008 documented as of this encounter (statuses as of 06/26/2022) [facility]10-[facility]2012 History of Past illness Narrative* Problem Noted Date Resolved Date First trimester bleeding 08/04/2012 013 Overview: Patient had recent miscarriage May 06, 2012. She states she has noted pink spotting when she wipes on June 25 2 the , and then again this morning. She denies any cramping or pain. Patient given an appointment Dr. Galicia today. Obesity, unspecified 08/04/2012 06/05/2013 Overview: 08/04/2012Patient is obese. Will plan on one-hour GCT at new OB visit. Immunization due 08/04/2012 07/16/2013 Overview: Patient states her tetanus vaccine is not up to date History of infection 08/04/2012 07/16/2013 Overview: 08/04/2012Patient had a perineal wound infection post that was treated by antibiotics and silver nitrate after the of her first child. Threatened in early 2 06/05/2013 Overview: August 07, 2012 quant doubled and erassuring, recommend US in 2 weeks at new ob visit. Saw 2 cm right corpus luteum cyst, unlikely ectopic due to patient asymptomatic but ectopic precautions reviewed Supervision of other normal 04/13/2011 06/05/2013 ADVANCED MATERNAL AGE:MULTIPARA [659.63] 011 06/05/2013 Overview: 08/04/2012Pt is 42 years old. Advanced Maternal age discussed. Pt refused handouts on Genetic Amniocentesis and [employer] handout on Quad Marker Screen given and discussed. Level II Ultrasound, Early Screening in Program and Dr. Hylton's services discussed. Disruption of perineal wound, 008 06/13/2010 Elderly primigravida, antepartum 04/01/2008 07/21/2008 documented as of this encounter (statuses as of 12/20/2022) [facility] Diagnosis Strep throat- Primary Streptococcal sore throat Sore throat Acute pharyngitis ETD (Eustachian tube dysfunction), bilateral Feared condition not demonstrated Person with feared complaint in whom no diagnosis was made [facility] Diagnosis Sore throat- Primary Acute pharyngitis [facility] Diagnosis Encounter for gynecological examination with abnormal finding- Primary Routine gynecological examination Encounter for screening mammogram for breast cancer Vulvar pruritus Pruritus of genital organs Lichenification Lichenification and lichen simplex chronicus Class 2 obesity due to excess calories without serious comorbidity with body mass index (BMI) of 35.0 to 35.9 in adult [facility] Vulvar itching- Primary Pruritus of genital organs [facility] Diagnosis Vaginal atrophy- Primary Postmenopausal atrophic vaginitis Vulvar burning Unspecified symptom associated with female genital organs [facility] Diagnosis Sore throat- Primary Acute pharyngitis Sorethroat Acute pharyngitis [facility] Diagnostic Procedure Only (Routine) - Pending Review Specialty Diagnoses / Procedures Referred By Karla gotti Referred To Contact [facility] Diagnoses Encounter for screening mammogram for breast cancer Procedures RUSSEL SCREENING W YOMAIRA SCREENING DIGITAL BREAST TOMOSYNTHESIS BI SCREENING MAMMOGRAPHY BI 2-VIEW BREAST INC CAD Rocco Pepe APRN.CNM [address] [place] [address] [facility] [address] [place] [address] Referral ID Status Reason Start Date Expiration Date Visits Requested Visits Authorized [id number] Pending Review Auto-Generat ed Referral 03/27/2022 04/26/2023 1 1 [facility] Reason for Referral Specialty Diagnoses / Procedures Referred By Karla gotti Referred To Contact Diagnoses Vaginal atrophy Rocco Pepe APRN.CNM [address] [place] [address] Referral ID Status Reason Start Date Expiration Date V isits Requested Visits Authorized [id number] Pending Review 1 1 Summary Purpose Family History No Family History Records Found Advance Directives No Advanced Directives Records Found Additional Source Comments Source Comments (unrecognize d section and content) In the event this informatio n is protected by the Federal Confidentiality of Alcohol and Drug Abuse Patient Records regulations: The Federal rules restrict any use of the information to criminally investigate or prosecute any alcohol or drug abuse patient.[facility] the event this information is protected by the Federal Confidentiality of Alcohol and Drug Abuse Patient Records regulations: The Federal rules restrict any use of the information to criminally investigate or prosecute any alcohol or drug abuse patient.[facility] the event this information is protected by the Federal Confidentiality of Alcohol and Drug Abuse Patient Records regulations: The Federal rules restrict any use of the information to criminally investigate or prosecute any alcohol or drug abuse patient.[facility] the event this information is protected by the Federal Confidentiality of Alcohol and Drug Abuse Patient Records regulations: The Federal rules restrict any use of the information to criminally investigate or prosecute any alcohol or drug abuse patient.[facility] the event this information is protected by the Federal Confidentiality of Alcohol and Drug Abuse Patient Records regulations: The Federal rules restrict any use of the information to criminally investigate or prosecute any alcohol or drug abuse patient.[facility] the event this information is protected by the Federal Confidentiality of Alcohol and Drug Abuse Patient Records regulations: The Federal rules restrict any use of the information to criminally investigate or prosecute any alcohol or drug abuse patient.[facility] the event this information is protected by the [facility] Confidentiality of Alcohol and Drug Abuse Patient Records regulations: The Federal rules restrict any use of the information to criminally investigate or prosecute any alcohol or drug abuse patient.[facility] the event this information is protected by the Federal Confidentiality of Alcohol and Drug Abuse Patient Records regulations: The Federal rules restrict any use of the information to criminally investigate or prosecute any alcohol or drug abuse patient.[facility] Reason for Visit (unrecogniz ed section and content) Reason Comments Follow Up Pt reported Hx Strep x 2wks prior reported sore throat x1 day Reason Comments Well Woman Reason Comments vulvar biopsy Reason Comments Results Reason Comments Follow Up Vulvar biopsy Reason Comments Sore Throat bodyaches, nasal pre ssure x today Care Teams (unrecognized sec tion and content) Collection Officer Relationship Specialty Start Date End Date Mariaelena Sosa [address] [place] [address] PCP - General Family Practice 08/07/19 Collection Officer Relationship Specialty Start Date End Date Mariaelena Sosa [address] [place] [address] PCP - General Family Practice 08/07/19 Collection Officer Relationship Specialty Start Date End Date Mariaelena Sosa [address] [place] [address] PCP - General Family Practice 08/07/19 Collection Officer Relationship Specialty Start Date End Date Mariaelena Sosa [address] [place] [address] PCP - General Family Practice 08/07/19 Collection Officer Relationship Specialty Start Date End Date Mariaelena Sosa [address] [place], [place] [address] PCP - General Family Medicine 08/07/19 Collection Officer Relationship Specialty Start Date End Date Mariaelena Sosa MD [address] [place], [place] [id number] PCP - General Family Medicine 08/07/19 INFORMATION SOURCE (unrecogn ized section and content) FOR RECORDS PERTAINING TO PATIENTS WHO ARE OR HAVE BEEN ENROLLED IN A CHEMICAL DEPENDENCY/SUBSTANCEABUSE PROGRAM, SOME INFORMATION MAY BE OMITTED. This clinical summary was aggregated from multiple sources. Caution should be exercised in using it in the provision of clinical care. This summary normalizes information from multiple sources, and as a consequence, information in this document may materially change the coding, format and clinical context of patient data. In addition, data may be omitted in some cases. CLINICAL DECISIONS SHOULD BE BASED ON THE PRIMARY CLINICAL RECORDS. [employer] provides no warranty or guarantee of the accuracy or completeness of information in this document.
[2023-12-12 07:17] LABS: Internal QC Validated? YES +Cl - CLEAR BKGD; Pregnancy, Urine Negative Negative
[2023-12-12 07:19] VITALS: BP 118/67; PULSE 73; RESP 18; TEMP 36.7; O2SAT 99; BMI 35.0
[2023-12-12] MEDS: Lactated Ringers 1,000 ML 15 ML IV (07:29)
--- NOTE | 2023-12-12 07:29 | HP.PCM_ITS ---
[facility] - General General Date of Admission: 12/12/23 Date of Service: 12/12/23 Chief Complaint: Screening colonoscopy [facility] Narrative MELVIN MELENDEZ, is a 53 F who presents today for screening colonoscopy. She does not have any abdominal pain. She not have any cramping. She denied any chest pain shortness of breath. She is never had a colonoscopy in the past. Overall she is in very good health. [facility] Medical History Acute renal failure Alcohol use Dehydration Family history of diabetes mellitus Hyperglycemia Intractable diarrhea Metabolic acidosis Non-smoker Wears glasses Home Medications NK 12/12/23 [History Last Taken Unknown] Allergy/AdvReac Type Severity Reaction Status Date / Time esomeprazole magnesium Allergy Severe Rash Verified 12/12/23 07:16 [From Vimovo] naproxen [From Vimovo] Allergy Severe Rash Verified 12/12/23 07:16 Surgical History Hx of tonsillectomy Hx of wisdom tooth extraction Social History (Updated 11/15/23 @ 10:14 by Constance Johnson) household members: spouse current occupational status: employed Smoking Status: Never smoker details: Minimal alcohol substance use type: does not use ROS Review of Systems ROS Unobtainable: other Constitutional Constitutional: Denies fatigue, fever(s), poor appetite, weight gain or weight loss ENT HEENT: Denies mouth lesions Cardiovascular Cardiovascular: Denies abdominal bloating, abdominal edema or abdominal pain Respiratory/Chest Respiratory/Chest: Denies change in mental status, change in phlegm color, chest congestion or chest tightness Gastrointestinal Gastrointestinal: Denies belching, bloating, change in bowel habits, change in stool character, chewing difficulty, coffee ground emesis, constipation, cramping, diarrhea, dyspepsia, dysphagia, early satiety, excessive flatus, fecal incontinence, heartburn, hematemesis, hematochezia, hemorrhoids, loose stools, melena, nausea, odynophagia, rectal bleeding, tenesmus, vomiting or weight changes Genitourinary Genitourinary: Denies abdominal discomfort, burning urination or itching Musculoskeletal Musculoskeletal: Reports as per HPI; Denies muscle weakness or myalgias Integumentary Integumentary: Denies jaundice Neurologic Neurologic: Denies lack of coordination or weakness Psychiatric Psychiatric: Denies confusion, depression, memory loss, mood swings, paranoia or suicidal ideation Endocrine Endocrinology: Denies systems reviewed and no addt'l complaints, except as documented Hematologic/Lymphatic Hematologic/Lymphatic: Denies anemia, easy bleeding, easy bruising or lymphadenopathy Allergic/Immunologic Allergic/Immunologic: Denies systems reviewed and no addt'l complaints, except as documented Vital Signs Vital Signs Vital Signs: 12/12/23 07:18 12/12/23 07:19 Temperature 98.0 F Temperature Source Temporal Pulse Rate 73 Respiratory Rate 18 Respiratory Pattern Normal Blood Pressure 118/67 Blood Pressure Mean 84 Blood Pressure Source Monitor Blood Pressure Position Semi-Fowlers Blood Pressure Location Left Arm Pulse Ox 99 Oxygen Delivery Method Room Air Weight Weight: 217 lb Body Mass Index (BMI) 35.0 Physical Exam Const alert General Appearance: cooperative Orientation / Consciousness: oriented to person HEENT hearing grossly normal bilaterally Head and Scalp: normal to inspection Face and Sinus: face symmetric Nose: external nose normal Mouth: oral and palatal mucosa normal Eyes conjunctivae normal General Eye: normal appearance of both eyes Neck full ROM General: normal visual inspection Lymph Lymphatic: no lymphadenopathy noted Chest inspection of chest normal and palpation of chest normal Chest: symmetrical chest wall rise Resp normal respiratory effort Effort and Inspection: able to speak in complete sentences Cardio regular rate GI non-distended Percussion: normal to percussion Rectal Exam: deferred Neuro Speech: speech normal Gait (Neuro): normal gait Results Lab / Micro Data Labs: Laboratory Results - last 24 hr 12/12/23 07:05: Urine Test Negative Assessment & Plan Assessment/Plan (1) Encounter for screening for malignant neoplasm of colon: PLAN: She was explained alternatives, risk, benefits including not withstanding bleeding, infection, sepsis, perforation, need for emergent surgery and . She will have an ASA of 3.
--- NOTE | 2023-12-12 07:58 | OP.COLON_ITS ---
Patient Name: Yvette Lees Procedure Date: 12/12/2023 7:31 AM Date of : 1970 Age: 53 Procedure: Colonoscopy Indications: Screening for colorectal malignant neoplasm Providers: Damon Hoang DO Medicines: Monitored Anesthesia Care Patient Profile: This is a 53 year old female. Refer to note in patient chart for documentation of history and physical. Last Colonoscopy: none. The patient's first colonoscopy is today. Complications: No immediate complications. Procedure: Pre-Anesthesia Assessment: - Prior to the procedure, a History and Physical was performed, and patient medications and allergies were reviewed. The patient is competent. The risks and benefits of the procedure and the sedation options and risks were discussed with the patient. All questions were answered and informed consent was obtained. Patient identification and proposed procedure were verified by the physician in the pre-procedure area. Mental Status Examination: alert and oriented. Airway Examination: normal oropharyngeal airway and neck mobility. Respiratory Examination: clear to auscultation. CV Examination: normal. Prophylactic Antibiotics: The patient does not require prophylactic antibiotics. Prior Anticoagulants: The patient has taken no anticoagulant or antiplatelet agents. ASA Grade Assessment: II - A patient with mild systemic disease. After reviewing the risks and benefits, the patient was deemed in satisfactory condition to undergo the procedure. The anesthesia plan was to use monitored anesthesia care (MAC). Immediately prior to administration of medications, the patient was re-assessed for adequacy to receive sedatives. The heart rate, respiratory rate, oxygen saturations, blood pressure, adequacy of pulmonary ventilation, and response to care were monitored throughout the procedure. The physical status of the patient was re-assessed after the procedure. After I obtained informed consent, the scope was passed under direct vision. Throughout the procedure, the patient's blood pressure, pulse, and oxygen saturations were monitored continuously. The Colonoscope was introduced through the anus and advanced to the cecum, identified by appendiceal orifice and ileocecal valve. The colonoscopy was performed without difficulty. The patient tolerated the procedure well. The quality of the bowel preparation was adequate. The ileocecal valve, appendiceal orifice, and rectum were photographed. Scope In: 7:41:59 AM Scope Withdrawal Time 0 hours 7 minutes 35 seconds Scope Out: 7:53:17 AM Total Procedure Duration Time 0 hours 11 minutes 18 seconds Findings: The perianal and digital rectal examinations were normal. The colon (entire examined portion) appeared normal. No additional abnormalities were found on retroflexion. Impression: - The entire examined colon is normal. - No specimens collected. Recommendation: - Discharge patient to home. - Resume previous diet. - Continue present medications. - Repeat colonoscopy in 10 years for screening purposes. Procedure Code(s): --- Professional --- G0121, Colorectal cancer screening; colonoscopy on individual not meeting criteria for high risk CPT copyright 2021 [employer]. All rights reserved. The codes documented in this report are preliminary and upon director of state review may be revised to meet current compliance requirements. Damon Hoang DO 12/12/2023 7:57:20 AM This report has been signed electronically. Number of Addenda: 0 Note Initiated On: 12/12/2023 7:31 AM
--- NOTE | 2023-12-12 07:58 | OP.CCLET_ITS ---
12/12/2023 Mariaelena Sosa [place] [id number] [address] Re : Colonoscopy procedure for Yvette Lees Dear Dr. Sosa This procedure was performed on December. My impressions and recommendations are as follows: Impressions : - The entire examined colon is normal. - No specimens collected. Recommendations : - Discharge patient to home. - Resume previous diet. - Continue present medications. - Repeat colonoscopy in 10 years for screening purposes. My findings are described in the full procedure note, which is enclosed. If I can be of further assistance, please feel free to contact me at . Sincerely, Damon Friend, 12/12/2023 7:57:20 AM This report has been signed electronically.
[2023-12-12 07:59] VITALS: BP 118/67; BP 125/67; PULSE 70; RESP 16; TEMP 36.6; O2SAT 95
[2023-12-12 08:04] VITALS: BP 100/64; BP 118/67; PULSE 68; RESP 16; O2SAT 95
[2023-12-12 08:09] VITALS: BP 101/67; BP 118/67; PULSE 59; RESP 16; O2SAT 98
[2023-12-12 08:14] VITALS: BP 101/69; BP 118/67; PULSE 57; RESP 16; TEMP 36.6; O2SAT 97
[2023-12-12 08:42] VITALS: BP 118/67
== END 2023-12-12 09:15 | disposition home or self-care (01) ==
LOC: EN 06:52 → AC 06:57
PROVIDERS: Anesthesiology; PCP Family Medicine; Referring Provider Family Medicine; Visit Provider Internal Medicine Gastroenterology
PROC: 0DJD8ZZ Inspection of Lower Intestinal Tract, Via Natural or Artificial Opening Endoscopic (ICD-10-PCS; CPT 45378; principal; 2023-12-12 07:40)
DX: Z12.11 Encounter for screening for malignant neoplasm of colon (principal); Z87.19 Personal history of other diseases of the digestive system
CPT/HCPCS: 45378; 81025; J7120; J2405

== ENCOUNTER → 2024-03-19 | Outpatient (CLI) | payer BC, SELFPAY ==
[2024-03-19 13:14] LABS: HIV - WCH Non-Reactive (Nonreactive)
== END | disposition home or self-care (01) ==
LOC: BFHLAB 10:54
PROVIDERS: PCP Family Medicine; Referring Provider Family Medicine; Visit Provider Family Medicine
DX: Z00.00 Encounter for general adult medical examination without abnormal findings (principal)
CPT/HCPCS: 36415; 86703